=== PATIENT | female | born 1975 | race Two or more races ===

== ENCOUNTER 2020-07-26 13:33 | Outpatient (REF) | payer OTHER, SELFPAY ==
--- NOTE | ~2020-07-26 | MM_ITS ---
EXAMINATION: MM SCREENING DIGITAL BREAST TOMOSYNTHESIS, BILATERAL CLINICAL INFORMATION: Screening. Asymptomatic. The lifetime risk of breast cancer based on the Tyrer-Cuzick Model is 14%. COMPARISON: Mammography: 08/31/2018, 08/17/2017, 08/05/2017; ultrasound left breast 08/17/2017 TECHNIQUE: Digital breast tomosynthesis is performed in both the craniocaudal and mediolateral oblique views along with computer-aided detection (CAD). Synthesized 2D images are generated from the tomosynthesis. FINDINGS: The breasts are heterogeneously dense, which may obscure small masses (ACR BI-RADS breast composition Category c). There is fibronodular parenchymal pattern with scattered bilateral asymmetries and shifting fibroglandular tissues from year to year depending on positioning without significant change. There is no developing density or interval mass or architectural abnormality. Small cyst outer left breast is stable. There is stable nodularity anterior upper outer right breast similar to prior tomography. There are no abnormal calcifications. The axilla and skin contours are unremarkable. MM/MM tomosynthesis screening BI IMPRESSION: No significant changes from prior studies. ASSESSMENT: BI-RADS 2: Benign RECOMMENDATION: Routine annual mammography screening. This patient's information was entered into a reminder system with a target due date for their next mammogram.
== END 2020-07-26 13:34 | disposition home or self-care (01) ==
LOC: HO.MAMMO 13:33
PROVIDERS: PCP Internal Medicine; Visit Provider Internal Medicine
DX: Z12.31 Encounter for screening mammogram for malignant neoplasm of breast (principal)
CPT/HCPCS: 77063; 77067

== ENCOUNTER → 2021-09-02 10:30 | Outpatient (BNVA) | payer OTHER, SELFPAY | PROVIDERS: PCP Internal Medicine; Referring Provider Internal Medicine; Visit Provider Internal Medicine | DX: Q79.60 Ehlers-Danlos syndrome, unspecified (principal); R00.2 Palpitations | CPT/HCPCS: 93005 ==

== ENCOUNTER → 2021-10-02 08:51 | Outpatient (BNVA) | payer OTHER, SELFPAY | PROVIDERS: PCP Internal Medicine; Visit Provider Psychiatry & Neurology Neurology | DX: Z13.89 Encounter for screening for other disorder (principal) ==

== ENCOUNTER → 2021-10-07 08:29 | Outpatient (REF) | payer OTHER, SELFPAY ==
--- NOTE | 2021-10-07 08:33 | CA_ITS ---
Transthoracic Echocardiogram Patient (Last, First, Middle): Beti Ramirez, I Gender: Female Date of : 1975 Age: 46 Procedure Date: 10/07/2021 Procedure Type: Transthoracic Echocardiogram Location: OP Height: 170.18 cm Weight: 71.22 kg BSA: 1.82 m2 Heart Rate: bpm BP: 120 / 60 mmHg [employer] Official: LIBORIO Referring MD: Matheus Alaniz MD Symptoms: Q79.60 - Maren-Danlos syndrome, unspecified Study Quality: Good ECG Rhythm: Sinus Conclusions: - The left ventricular systolic function is normal. The calculated ejection fraction is 63% by biplane method. - No obvious valvular pathology seen on this study. Findings Left Ventricle Normal left ventricular cavity size. There is normal left ventricular wall thickness. The left ventricular systolic function is normal. The calculated ejection fraction is 63% by biplane method. There is no evidence of regional wall motion abnormalities. Diastolic function is normal for age. Right Ventricle Normal right ventricular cavity size and systolic function. Atria Both atria are normal in size. Aortic Valve There is a normal trileaflet aortic valve. There is no aortic valve stenosis. There is no aortic valve regurgitation. Mitral Valve There is no mitral valve stenosis. Minimal leaflet thickening. Trace to mild mitral regurgitation. Pulmonic Valve The pulmonic valve is likely normal. Tricuspid Valve Normal tricuspid valve structure. There is trace tricuspid valve regurgitation. The pulmonary artery systolic pressure is normal. Great Vessels The asc aorta and aortic arch are normal in size. Venous The inferior vena cava is normal in size and collapses greater than 50% with inspiration. Pericardium/Pleural There is no evidence of pericardial effusion. Prior Study Comparison No prior study available for comparison. Recommendations, Care & Conclusions No obvious valvular pathology seen on this study. Measurements 2D Linear Measurements IVSd: 0.70 0.6-0.9/0.6-1.0 cm LVIDd: 4.77 3.9-5.3/4.2-5.9 cm LVIDd Index: 2.62 2.4-3.2/2.2-3.1 cm/m2 LVIDs: 3.12 2.0-3.6 cm LVPWd: 0.62 0.7-1.1 cm LA Diam: 3.00 2.7-3.8/3.0-4.0 cm LAIDs Index: 1.65 1.5-2.3 cm/m2 LV Mass: 121.91 67-162/88-224 g LV Mass Index: 66.99 43-95/49-115 g/m2 LVOT Diam: 1.90 3.0+(-)1.3 cm 2D Systolic Function EF 4C: 59.00 >55% EF 2C: 66.30 >55% EF BiP: 62.70 >55% Mitral Valve MV Pk E: 0.69 MV PK A: 0.67 MV Decel Time: 171.00 E/A: 1.00 E'Lateral: 14.80 E'Medial: 7.72 E/E' Med: 9.00 E/E' Lat: 4.70 PHT: 50.00 MVA PHT: 4.40 Decel [place]: 4.04 Aortic Valve AoV Pk Jay: 1.33 AoV Mn Jay: 0.98 AoV VTI: 0.29 AoV Pk Grad: 7.00 Aov Mn Grad: 4.00 [place] Cont.VTI: 2.26 LVOT LVOT Pk Jay: 1.05 LVOT Mn Jay: 0.81 LVOT VTI: 0.23 LVOT Pk Grad: 4.00 LVOT Mn Grad: 3.00 LVOT Diam: 1.90 LVOT Area: 2.84 Diastolic Function MV Pk E: 0.69 MV Pk A: 0.67 E/A: 1.00 E'Medial: 7.72 E/E' Med: 9.00 E' Laterial: 14.80 E/E' Lat: 4.70 Right Ventricle TAPSE (mm): 22.30 TVS' Jay: 11.90 Tricuspid Valve TR Pk Jay: 1.59 TR Pk Grad: 10.00 RA Press: 3.00 RVSP: 13.00 Great Vessels Aorta Sinus of Valsalva: 3.11 2.0-3.[address] [place]: 2.70 1.7-3.4 cm Ao Asc: 3.00 2.1-3.4 cm Ao Arch: 3.00 Updated in Other Vendor System with Status of Final Matheus Alaniz MD electronically signed on 10/07/2021 11:55:33 AM with status of Final
--- NOTE | 2021-10-07 08:33 | HM_ITS ---
* Total monitoring time 3 days and 1 hour. * Underlying rhythm is sinus. Average rate 81/Min; range 53 to 138/Min. * No atrial fibrillation or flutter or AV blocks or pauses. * Very rare ventricular ectopy; one 3 beat run (could have supraventricular beats) * No patient events. MTDD
== END ==
LOC: HO.CARD 08:29
PROVIDERS: Visit Provider Internal Medicine
DX: Q79.60 Ehlers-Danlos syndrome, unspecified (principal); R00.2 Palpitations
CPT/HCPCS: 93242; 93306

== ENCOUNTER 2021-10-09 10:43 | Outpatient (REF) | payer OTHER, SELFPAY ==
[2021-10-12 14:45] LABS: HPV mRNA E6/E7 rflx Not Detected (Not Detected)
== END 2021-10-09 10:44 | disposition home or self-care (01) ==
LOC: HO.LAB 10:43
PROVIDERS: PCP Internal Medicine; Visit Provider Advanced Practice Midwife
DX: Z01.419 Encounter for gynecological examination (general) (routine) without abnormal findings (principal); Z11.51 Encounter for screening for human papillomavirus (HPV)
CPT/HCPCS: 87624; 88142

== ENCOUNTER 2021-10-14 10:28 | Outpatient (REF) | payer OTHER, SELFPAY | END 2021-10-14 10:29 | disposition home or self-care (01) | LOC: HO.MAMMO 10:28 | PROVIDERS: PCP Internal Medicine; Visit Provider Internal Medicine | DX: Z13.89 Encounter for screening for other disorder (principal) ==

== ENCOUNTER → 2021-11-07 14:34 | Outpatient (BNVA) | payer OTHER, SELFPAY | PROVIDERS: PCP Internal Medicine; Referring Provider Internal Medicine; Visit Provider Nurse Practitioner Family | DX: R07.9 Chest pain, unspecified (principal) ==

== ENCOUNTER 2021-11-08 07:57 | Outpatient (REF) | payer OTHER, SELFPAY ==
--- NOTE | ~2021-11-08 | MR_ITS ---
EXAMINATION: MR CERVICAL SPINE WITHOUT CONTRAST CLINICAL INFORMATION: 46-year-old with self-reported neck pain of 6 months duration and bilateral cervical radicular symptoms. COMPARISON: None. TECHNIQUE: MRI of the cervical spine was obtained using routine sequences without contrast. FINDINGS: ALIGNMENT: Slight lordotic reversal noted centered at C5-C6 with overall lordotic loss noted. No spondylolisthesis or significant retrolisthesis. CRANIOCERVICAL JUNCTION/C1-C2 ARTICULATIONS: Intact and aligned. Mild degenerative changes at the anterior atlantodental joint. VISUALIZED INTRACRANIAL STRUCTURES: Within normal limits. VERTEBRAL BODIES: Normal height. DISC SPACES AND ENDPLATES: Slight disc space height loss at C3-C4 and C4-C5 with moderate disc space height loss at C5-C6 and C6-C7 and lplm-gw-qjvijwrx degrees of anterior marginal spondylosis at C4-C5, C5-C6 and C6-C7. Endplates appear intact. Multilevel disc desiccation seen throughout the cervical spine between C2-C3 and C6-C7 inclusive. BONE MARROW: No significant marrow-replacing process or bone marrow edema. C2-C3: No disc herniation or canal stenosis. No significant DJD or neural foraminal stenosis. C3-C4: Broad-based disc protrusion noted with mild flattening of the ventral dural sac without cord impingement or canal stenosis. Minor facet arthrosis noted with mild uncinate process spurring bilaterally without significant neural foraminal stenosis. C4-C5: Minor posterior disc osteophyte complex without canal stenosis or cord impingement. Mild uncinate process spurring bilaterally and minor facet arthropathy without neural foraminal stenosis. C5-C6: Broad-based disc osteophyte complex noted with flattening of the dural sac asymmetric to the left without cord impingement. No significant spinal canal stenosis. No significant facet arthrosis. There is uncovertebral spurring bilaterally, with nhyp-vb-ucrvvhhb bilateral neural foraminal stenosis. C6-C7: Central disc herniation noted with jags-yj-cpmpgmcx flattening of the ventral dural sac without cord impingement and no significant spinal canal stenosis. There is uncovertebral spurring bilaterally, left more than right without significant facet arthropathy, with mild left-sided neural foraminal stenosis. C7-T1: No disc herniation. Moderate left-sided facet arthrosis noted. No significant canal or neural foraminal stenosis. SPINAL CORD: The cervical and visualized upper thoracic spinal cord is normal in morphology, caliber and signal intensity throughout. No focal lesion, edema or syrinx. EXTRACRANIAL SOFT TISSUES: Grossly unremarkable within the limitations of the study. MR/MR cervical spine wo con IMPRESSION: 1. Lordotic loss with slight reversal of the normal lordotic curvature centered at C5-C6 with multilevel discogenic degenerative changes and spondylosis. 2. Multilevel disc herniations and posterior disc osteophyte complex as described above without cord impingement or significant spinal canal stenosis. 3. Multilevel bilateral uncovertebral arthrosis is noted, with sokr-ef-pbhxohwy bilateral neural foraminal stenosis at C5-C6 and mild left-sided neural foraminal stenosis at C6-C7. Left-sided facet arthropathy at C7-T1 noted without significant neural foraminal stenosis. 4. Some limitations related to motion artifact throughout the study.
[2021-11-08 09:00] LABS: MANUAL DIFF FLAG NO
[2021-11-08 10:13] LABS: Basophils Percent Auto 0.4 % (0-2); Eosinophils Absolute Auto 0.1 X10*3/uL (0.0-0.4); Eosinophils Percent Auto 1.7 % (0-4); Hematocrit 43.7 % (37.0-47.0); Hemoglobin 14.6 g/dl (12.0-16.0); Imm Gran Abs Auto 0.01 X10*3/uL (0.00-0.03); Imm Gran Pct Auto 0.2 % (0.0-0.4); Lymphocytes Percent Auto 38.8 % (20-40); Mean Corpuscular HGB Conc 33.4 g/dl (31.0-35.0); Mean Corpuscular Hemoglobin 31.3 pg (27.0-33.0); Mean Corpuscular Volume 93.6 fL (80.0-98.0); Mean Platelet Volume 10.8 fL (9.4-12.3); Monocytes Absolute Auto 0.5 X10*3/uL (0.1-1.2); Neutrophils Absolute Auto 2.5 x10*3/uL (2.0-8.3); Neutrophils Percent Auto 48.9 % (45-73); Platelet Count 285 X10*3/uL (160-400); Red Blood Count 4.67 X10*6/uL (4.20-5.50); Red Cell Distribution Width 12.9 % (11.0-16.0); White Blood Count 5.2 X10*3/uL (4.8-10.8)
[2021-11-08 10:54] LABS: Alanine Aminotransferase 19 U/L (0-31); Albumin Level 3.9 g/dL (3.5-5.0); Alkaline Phosphatase 68 U/L (39-117); Anion Gap 13 (12-20); Aspartate Amino Transferase 21 U/L (5-31); Bilirubin Total 0.6 mg/dL (0.0-1.0); Blood Urea Nitrogen 11 mg/dL (9-16); Calcium 9.4 mg/dL (8.4-10.2); Carbon Dioxide 25 mmol/L (22-29); Chloride 105 mmol/L (96-108); Cholesterol 197 mg/dL; Estimated Glomerular Filt Rate > 60; Glucose Fasting 82 mg/dL (60-99); HDL Cholesterol 74 mg/dL; LDL Cholesterol Calculated 113 mg/dl; Potassium 4.6 mmol/L (3.3-5.1); Sodium 138 mmol/L (135-145); Total Protein 6.5 g/dL (6.5-8.0); Triglycerides 51 mg/dL
== END 2021-11-08 07:58 | disposition home or self-care (01) ==
LOC: HO.MRI 07:57
PROVIDERS: Internal Medicine; Visit Provider Psychiatry & Neurology Neurology
DX: Z00.00 Encounter for general adult medical examination without abnormal findings (principal); M62.838 Other muscle spasm; M54.2 Cervicalgia; M54.9 Dorsalgia, unspecified; R20.0 Anesthesia of skin; R20.2 Paresthesia of skin; E78.5 Hyperlipidemia, unspecified; K57.92 Diverticulitis of intestine, part unspecified, without perforation or abscess without bleeding
CPT/HCPCS: 36415; 72141; 80053; 80061; 85025

== ENCOUNTER 2021-12-18 10:13 | Outpatient (REF) | payer OTHER, SELFPAY ==
--- NOTE | 2021-12-18 10:22 | EMG_ITS ---
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 PHYSICAL EXAMINATION: On examination, she is oriented with normal intellectual functions. Cranial nerves are normal. She has 4 years of loose skin. Reflexes symmetrical. IMPRESSION: Rule out cervical radiculopathy. Nerve conduction EMG study: Normal electrodiagnostic study of both upper extremities with no evidence of carpal tunnel syndrome, nerve entrapment, or generalized neuropathy. Normal EMG of the right C5-T1 innervated muscles. MD RONAL Roach/BELEN / [id number]
== END 2021-12-18 10:14 | disposition home or self-care (01) ==
LOC: HO.NEURO 10:13
PROVIDERS: PCP Internal Medicine; Visit Provider Psychiatry & Neurology Neurology
DX: R20.0 Anesthesia of skin (principal); R20.2 Paresthesia of skin; M62.838 Other muscle spasm; M54.2 Cervicalgia; M54.9 Dorsalgia, unspecified; Q79.60 Ehlers-Danlos syndrome, unspecified
CPT/HCPCS: 95886; 95913

== ENCOUNTER 2022-04-15 09:39 | Outpatient (REF) | payer OTHER, SELFPAY ==
--- NOTE | ~2022-04-15 | MR_ITS ---
EXAMINATION: MR LUMBAR SPINE WITHOUT CONTRAST CLINICAL INFORMATION: 46-year-old with self-reported mid to low back pain and bilateral leg pain and numbness. COMPARISON: None. TECHNIQUE: MRI of the lumbar spine was obtained using routine sequences without contrast. Images were degraded by motion artifact. FINDINGS: CORONAL ALIGNMENT: Trace lower lumbar levocurvature. SAGITTAL ALIGNMENT: Normal. LUMBOSACRAL JUNCTION: Normal. 5 eft-zyt-vvxsbwh lumbar-type vertebral bodies. VERTEBRAL BODIES: Normal height. DISC SPACES AND ENDPLATES: Mild disc space height loss and disc desiccation at L5-S1. Mild disc space height loss and disc desiccation at L3-L4, with minimal disc space height loss and disc desiccation at L4-L5. Endplates appear intact. No significant spondylosis. SPINAL CANAL: No abnormal developmental findings. BONE MARROW: No significant marrow-replacing process or bone marrow edema. CONUS MEDULLARIS: Terminates at T12-L1. Morphology and signal is normal. INTRADURAL NERVE ROOTS: Within normal limits. L5-S1: Shallow broad-based central disc protrusion with a tiny central annular fissure without thecal sac or neural impingement. No significant degenerative joint disease, canal or neural foraminal stenosis. L4-L5: Broad-based central to left paramedian shallow disc protrusion with transverse annular fissuring and minimal indentation of the ventral thecal sac without neural impingement. Mild left and moderate right-sided facet arthrosis noted with no significant canal or neural foraminal stenosis. L3-L4: Mild diffuse disc bulging with a small central annular fissure and slight flattening of the ventral dural sac. Mild left and moderate right-sided facet arthrosis noted without significant canal or neural foraminal stenosis. The remaining lumbar discs demonstrate normal contours with no significant facet arthrosis, canal or neural foraminal stenosis. PARASPINAL/RETROPERITONEAL: The visualized paravertebral soft tissues are within normal limits. Sigmoid diverticulosis is suspected. MR/MR lumbar spine wo con IMPRESSION: 1. Mild multilevel discogenic degenerative changes between L3-L4 and L5-S1 inclusive, with shallow broad-based central disc protrusions at L4-L5 and L5-S1 and mild disc bulging at L3-L4 with central annular fissuring at both levels without neural impingement or significant spinal canal stenosis. 2. Lyrr-jt-iakdvtko degrees of facet arthropathy at L3-L4, L4-L5 and L5-S1 without significant neural foraminal stenosis. 3. Probable sigmoid diverticulosis.
== END 2022-04-15 09:40 | disposition home or self-care (01) ==
LOC: HO.MRI 09:39
PROVIDERS: Visit Provider Psychiatry & Neurology Neurology
DX: M54.9 Dorsalgia, unspecified (principal); M62.838 Other muscle spasm; Q79.63 Vascular Ehlers-Danlos syndrome; R20.0 Anesthesia of skin; R20.2 Paresthesia of skin; R29.898 Other symptoms and signs involving the musculoskeletal system
CPT/HCPCS: 72148

== ENCOUNTER → 2022-10-01 08:30 | Outpatient (BNVA) | payer OTHER, SELFPAY | PROVIDERS: PCP Internal Medicine; Visit Provider Psychiatry & Neurology Neurology | DX: R29.898 Other symptoms and signs involving the musculoskeletal system (principal); Q79.63 Vascular Ehlers-Danlos syndrome; M54.9 Dorsalgia, unspecified; R20.0 Anesthesia of skin; R20.2 Paresthesia of skin; M62.838 Other muscle spasm; M54.2 Cervicalgia ==

== ENCOUNTER → 2022-11-17 08:33 | Outpatient (BNVA) | payer OTHER, SELFPAY | PROVIDERS: PCP Internal Medicine; Referring Provider Internal Medicine; Visit Provider Internal Medicine | DX: R00.2 Palpitations (principal); Q79.60 Ehlers-Danlos syndrome, unspecified | CPT/HCPCS: 93005 ==

== ENCOUNTER 2023-01-05 09:29 | Outpatient (REF) | payer OTHER, SELFPAY ==
--- NOTE | ~2023-01-05 | MM_ITS ---
EXAMINATION: MM SCREENING DIGITAL BREAST TOMOSYNTHESIS, BILATERAL CLINICAL INFORMATION: Screening. Asymptomatic. The lifetime risk of breast cancer based on the Tyrer-Cuzick Model is 13.7%. COMPARISON: Mammography: This study is compared with prior exams dating back to 2018. TECHNIQUE: Digital breast tomosynthesis is performed in both the craniocaudal and mediolateral oblique views along with computer-aided detection (CAD). Synthesized 2D images are generated from the tomosynthesis. FINDINGS: There are scattered areas of fibroglandular density (ACR BI-RADS breast composition Category b). There are no significant masses, abnormal calcifications, or other abnormalities. MM/MM tomosynthesis screening BI IMPRESSION: No mammographic evidence of malignancy. ASSESSMENT: BI-RADS BI-RADS 1 - Negative RECOMMENDATION: Routine annual mammography screening. 1 year F/U This examination should not preclude the clinical evaluation of a suspicious palpable abnormality. This patient's information was entered into a reminder system with a target due date for their next mammogram.
== END 2023-01-05 09:30 | disposition home or self-care (01) ==
LOC: HO.MAMMO 09:29
PROVIDERS: PCP Internal Medicine; Visit Provider Internal Medicine
DX: Z12.31 Encounter for screening mammogram for malignant neoplasm of breast (principal)
CPT/HCPCS: 77063; 77067

== ENCOUNTER → 2023-01-05 09:45 | Outpatient (BNV) | payer OTHER, SELFPAY | PROVIDERS: PCP Internal Medicine; Visit Provider Radiology Diagnostic Radiology | DX: Z12.31 Encounter for screening mammogram for malignant neoplasm of breast (principal) | CPT/HCPCS: 77063; 77067 ==

== ENCOUNTER 2023-02-09 10:49 | Outpatient (AMB) | payer OTHER, SELFPAY ==
--- NOTE | 2023-02-09 10:51 | A.OFFPC_ITS ---
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: No Accompanied by: Self / Same As Patient Allergies No Known Allergies Allergy (Verified 02/09/23 10:57) Medication List - Last Reconciled 02/09/23 by Blanca Chauhan MD albuterol sulfate 90 mcg/actuation 1 puff PO Q4H PRN 30 days magnesium glycinate 300 mg (3 x 100 mg magnesium) PO .qhs methimazole 2.5 mg PO DAILY Tobacco use date assessed: 08/12/22 Dental Screening Dental Screen Date: 02/09/23 Did you have a dental visit in the last 12 months?: Yes Did you have a dental problem in the last 6 months where you did not have access to dental care?: No Was dental information given to patient?: Patient has dentist HPI HPI Comments History of Present Illness Details This is a 47-year-old female with hyperthyroidism, Maren-Danlos, mild asthma and migraines that comes today for follow-up on her conditions. Hyperthyroidism is follow by Endocrinology. Maren-Danlos is follow by Rheumatology. She use rescue inhaler less than once a month. Migraines have improved on its own and this is follow by Neurology. She takes ulqs-fuk-bhkdkng naproxen occasionally for body aches and migraines. [facility] Medical History (Updated 02/09/23 @ 11:05 by Blanca Chauhan MD) Chest pain Diverticulitis Dystonia Family history of hypertension Hospital discharge follow-up Hyperthyroidism Migraines Mild asthma Physical exam Skin lesion Transient global amnesia Vertigo Vertigo Surgical History No pertinent past surgical history Family History Father Diabetes Hypertension H/O heart surgery Mother Hypertension Maren-Danlos syndrome Maternal Grandfather No problems noted. Maternal Aunt Cancer Sister Maren-Danlos syndrome Heart disease Social History Housing: Apartment Alcohol intake: never Patient Tobacco Use Status: Never used Tobacco e-Cigarette/Vaping Use: Never Used Second Hand Smoke Exposure: No service: No Current occupational status: employed Current occupational exposures/hazards: No Cognitive needs: No Hearing needs: No Vision needs: Yes Questionnaire Thrive Questionnaire Date Thrive assessed: 08/12/22 HOSEA-7 AMB Questionnaire HOSEA-7 Date HOSEA - 7 assessed: 08/12/22 Source: Developed by Drs. Jaime Dang, Anamaria Tamayo, Omari Garg and colleagues, with an educational christiano from [employer]. Review of Systems Const All systems reviewed & are unremarkable except as noted in HPI and below Eyes Reports no additional complaints, Denies change in vision and Denies other visual disturbances Card Denies chest pain at rest, Denies chest pain with activity, Denies edema, Denies irregular heart rhythm, Denies claudication, Denies dyspnea, Denies dyspnea on exertion, Denies orthopnea, Denies paroxysmal nocturnal dyspnea and Denies slow heart rate Resp Denies cough, Denies dyspnea and Denies dyspnea on exertion GI Denies abdominal pain, Denies change in bowel habits, Denies excessive flatus, Denies nausea and Denies vomiting Denies urinary incontinence, Denies urinary hesitancy and Denies urinary urgency Musc Denies abnormal gait, Denies atrophy, Denies deformity and Denies limited range of motion Skin/Breast Denies bleeding lesions, Denies changing lesions and Denies rash Neuro Denies abnormal gait and Denies lack of coordination Physical exam (Primary Care) Vital Signs: Last Vital Signs BP 132/78 02/09/23 10:52 BMI result Body Mass Index 27.2 Tobacco/Smoking Status: Tobacco use Status Tobacco use date assessed 08/12/22 02/09/23 10:56 Patient Tobacco Use Status Never used Tobacco 02/09/23 10:56 Tobacco use type 12/10/21 17:59 e-Cigarette/Vaping Use Never Used 02/09/23 10:56 Thrive Assessment: Date of Thrive Assessment Date Thrive assessed 08/12/22 02/09/23 10:56 Eyes General: appearance normal, both eyes and all related structures Eyelids: Yes eyelids normal Conjunctivae: conjunctivae normal Neck Neck: Yes normal visual inspection and Yes supple Resp Effort & Inspection: normal respiratory effort Auscultation: clear to auscultation bilaterally Cardio Jugular venous distension: no JVD Rate: regular rate Rhythm: regular rhythm Heart sounds: S1 normal heart sound present and S2 normal heart sound present Extrem General: Yes full ROM Assessment and Plan Assessment & Plan (1) Hyperthyroidism: Code(s): E05.90 - Thyrotoxicosis, unspecified without thyrotoxic crisis or storm Plan: Continue methimazole. (2) Mild asthma: Code(s): J45.909 - Unspecified asthma, uncomplicated Plan: Use rescue inhaler as needed (3) Migraines: Code(s): G43.909 - Migraine, unspecified, not intractable, without status migrainosus Qualifiers: Migraine type: menstrual Status migrainosus presence: without status migrainosus Intractability: not intractable Qualified Code(s): G43.829 - Menstrual migraine, not intractable, without status migrainosus Plan: Continue NSAIDs as needed. Follow-up with Neurology. (4) Maren-Danlos syndrome: Code(s): Q79.60 - Maren-Danlos syndrome, unspecified Plan: Follow-up with rheumatology Orders: Orders FL upper GI series Today R10.13 - Epigastric pain Medications: New arm brace (Wrist Support One Size) As directed 1 ea 0RF M79.641 - Pain in right hand Ventolin HFA 90 mcg/actuation (albuterol sulfate) 2 puffs inhalation Q6H 30 days PRN 8 grams 2RF shortness of breath or wheezing NS J45.909 - Unspecified asthma, uncomplicated Discontinued albuterol sulfate 90 mcg/actuation Discontinued Reason: Patient Completed Course 1 puff PO Q4H 30 days PRN 6.7 grams 0RF bronchospasm J45.909 - Unspecified asthma, uncomplicated Coding Level of Care Code Est Pt Level 4 (49431) Diagnoses Hyperthyroidism E05.90 Mild asthma J45.909 Migraines G43.829 Migraine type: menstrual Status migrainosus presence: without status migrainosus Intractability: not intractable Maren-Danlos syndrome Q79.60 Time Spent (min) 23
[2023-02-09 10:52] VITALS: BP 132/78; BMI 27.2
== END 2023-02-09 11:12 | disposition home or self-care (01) ==
PROVIDERS: Visit Provider Internal Medicine
DX: E05.90 Thyrotoxicosis, unspecified without thyrotoxic crisis or storm (principal); J45.909 Unspecified asthma, uncomplicated; G43.829 Menstrual migraine, not intractable, without status migrainosus; Q79.60 Ehlers-Danlos syndrome, unspecified
CPT/HCPCS: 99214

== ENCOUNTER 2023-03-24 14:03 | Outpatient (AMB) | payer OTHER, SELFPAY ==
--- NOTE | 2023-03-24 14:18 | AM.OFFVISNUR ---
Intake Intake Visit Reasons: Flu Shot Allergies No Known Allergies Allergy (Verified 02/09/23 10:57) Office Procedures Flu Questionnaire Does the patient have a severe egg allergy?: No Does the patient have severe life threatening allergies?: No Does the patient have a fever or illness today?: No Has the patient ever had Guillain-[place] Syndrome?: No Has the patient ever had any past reaction to a flu shot?: No Immunizations flu vacc [id number] 6mos up(PF) 60 mcg(15 mcgx4)/0.5 mL IM syringe Performing Provider: Blanca Chauhan MD Performing Location: [facility] Administered by: Elizabeth Rudd RN on 03/24/23 14:18 Dose Route Admin Location Dispensed Lot Number Expiration Date NDC Financial Management Analyst 0.5 mL IM Left Deltoid 0.5 mL [id number] 12/13/23 58907-099-46 [employer] VIS Given Date VIS Provided VIS Publication Date 03/24/23 Single Vaccine 21 Eligibility Eligibility Date Funding Source Not [facility] Eligible 03/24/23 Private Coding Assessment & Plan Assessment & Plan Orders: Orders Influenza [id number] Immunization Today Z23 - Encounter for immunization
== END 2023-03-24 15:41 | disposition home or self-care (01) ==
PROVIDERS: PCP Internal Medicine; Visit Provider Internal Medicine
DX: Z23 Encounter for immunization (principal)
CPT/HCPCS: 90471; 90686

== ENCOUNTER 2023-04-02 10:20 | Outpatient (AMB) | payer OTHER, SELFPAY ==
--- NOTE | 2023-04-02 10:21 | A.OFFVIS_ITS ---
Intake Vital Signs 04/02/23 10:22 Height 5 ft 7 in Weight 177 lb 4 oz BMI 27.8 BP 118/72 Blood Pressure Location Lt brachial Position Sitting Respiration 16 Pulse 85 Pulse Source Pulse Oximeter Pulse Oximetry (%) 99 Oxygen Delivery Method Room Air Intake Visit Reasons: 6m follow up Dystonia-confirmed Intake Note: Pt presents o the office for a 6 month follow up for dystonia. She reports dizzy spells when rising from bed or a chair. She c/o more frequesnt migraines headaches and they are more severe than usual. She reports more broken veins on her legs, arms and fingers that causee bruising and pooling of blood. This has become more severe. Lately, she has been feeling as if there were fish wire in the gums that are being pulled up towards both her eyes causing sharp pain . This has been happening for 2 months. Lastly, she c/o dry eyes. 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 Now she feels like she has spasm in roxana face - she says it is not seen but feels like her face is pulled up. gabapentin helped but she stopped because of intolerance . she reports back pain and occasional shooting pain leg weakness and leg spasms . Her C spine MRI showed multilevel deg changes. No cord compression Ls pine MRI showed mild changes she uses OTC medications for pain- does not remember the name. Migraines are worse - 1/month can last 2 days EMG UE normal she reports dizziness when she stands up. [facility] Medical History Vertigo Transient global amnesia Vertigo Chest pain Dystonia Physical exam Hyperthyroidism Diverticulitis Hospital discharge follow-up Skin lesion Mild asthma Family history of hypertension Migraines Surgical History No pertinent past surgical history Family History Father Diabetes Hypertension H/O heart surgery Mother Hypertension Maren-Danlos syndrome Maternal Grandfather No problems noted. Maternal Aunt Cancer Sister Maren-Danlos syndrome Heart disease Social History Housing: Apartment Alcohol intake: never Patient Tobacco Use Status: Never used Tobacco e-Cigarette/Vaping Use: Never Used Second Hand Smoke Exposure: No service: No Current occupational status: employed Current occupational exposures/hazards: No Cognitive needs: No Hearing needs: No Vision needs: Yes Physical Exam Vital Signs: Last Vital Signs Pulse 85 04/02/23 10:22 Resp 16 04/02/23 10:22 BP 118/72 04/02/23 10:22 Pulse Ox 99 04/02/23 10:22 Oxygen Delivery Method Room Air 04/02/23 10:22 BMI result Body Mass Index 27.8 Const General: cooperative, healthy appearing, comfortable and no acute distress Nutritional Appearance: average body habitus Orientation/consciousness: patient oriented x3 HEENT Head: Yes normal to inspection and Yes normocephalic Eyes Pupils: Equal, round and reactive pupils present Neck Other: spasm in para spinal neck muscles , trapezius Neck: Yes normal visual inspection Neuro General: patient oriented x3, gait normal, tone normal, moves all extremities, no focal motor deficits and CN's II-XI intact bilaterally Cranial nerves: Yes CN's II-XII intact bilaterally, Yes Facial sensation intact/muscles of mastication intact, Yes Equal, round and reactive pupils present, Yes Bilaterally intact EOM present and Yes Normal facial strength p resent Cognition (Neuro): normal cognition Gait exam (Neuro): Normal gait present Deep tendon reflexes (DTR's): Right triceps reflex intensity grade: 2+, Left triceps reflex intensity grade: 2+, Rt Biceps (C5, C6): 2+, Left biceps reflex intensity grade: 2+, Right brachioradialis reflex intensity grade: 2+, Left brachioradialis reflex intensity grade: 2+, Right patellar reflex intensity grade: 3+, Left patellar reflex intensity grade: 3+, Right ankle reflex intensity grade: 3+ and Left ankle reflex intensity grade: 3+ Plantar Reflex Responses: upgoing (positive Babinski): right and left Psych Affect: Anxious affect present Assessment & Plan Assessment & Plan (1) Back pain: Code(s): M54.9 - Dorsalgia, unspecified (2) Leg weakness, bilateral: Code(s): R29.898 - Other symptoms and signs involving the musculoskeletal system (3) Neck pain: Code(s): M54.2 - Cervicalgia (4) Muscle spasm: Code(s): M62.838 - Other muscle spasm Plan I will trial her on amitriptyline 10mg qhs and imitrex 50mg as needed for migraines, Magnesium Glycinate 100mg qhs for muscle spasm , migraines and stiffness. Medications: New amitriptyline 10 mg PO BEDTIME 30 tabs 6RF sumatriptan succinate (Imitrex) take 1 tab at onset of headache; if no relief may repeat 1 tab after at least 2 hrs; max = 4 tabs/24 hr PO 14 tabs 6RF Changed From magnesium glycinate 300 mg (3 x 100 mg magnesium) PO .qhs 90 caps 6RF To magnesium glycinate 100 mg PO .qhs 90 caps 6RF Coding Level of Care Code Est Pt Level 4 (21540) Diagnoses Back pain M54.9 Leg weakness, bilateral R29.898 Neck pain M54.2 Muscle spasm M62.838
[2023-04-02 10:22] VITALS: BP 118/72; PULSE 85; RESP 16; O2SAT 99; BMI 27.8
== END 2023-04-02 10:50 | disposition home or self-care (01) ==
PROVIDERS: Visit Provider Psychiatry & Neurology Neurology
DX: M54.9 Dorsalgia, unspecified (principal); R29.898 Other symptoms and signs involving the musculoskeletal system; M54.2 Cervicalgia; M62.838 Other muscle spasm
CPT/HCPCS: 99214

== ENCOUNTER → 2023-04-02 10:20 | Outpatient (BNVA) | payer OTHER, SELFPAY | PROVIDERS: Visit Provider Psychiatry & Neurology Neurology | DX: R29.898 Other symptoms and signs involving the musculoskeletal system (principal); Q79.63 Vascular Ehlers-Danlos syndrome; M54.9 Dorsalgia, unspecified; R20.0 Anesthesia of skin; R20.2 Paresthesia of skin; M62.838 Other muscle spasm; M54.2 Cervicalgia ==

== ENCOUNTER 2023-04-21 09:22 | Outpatient (REF) | payer OTHER, SELFPAY ==
--- NOTE | ~2023-04-21 | FL_ITS ---
EXAMINATION: XR FLUOROSCOPY UPPER GI WITH AIR CLINICAL INFORMATION: Epigastric pain. Reflux COMPARISON: None TECHNIQUE: Fluoroscopic air contrast upper GI examination was performed utilizing standard techniques with thin and thick barium and effervescent granules. Numerous spot images were obtained. FINDINGS: Lateral cine images of the oropharynx and hypopharynx demonstrate normal swallow mechanism with normal epiglottic inversion and soft palate elevation. No tracheal penetration, glottic or subglottic aspiration identified. No nasopharyngeal reflux present. Hypopharyngeal structures appear normal without evidence of mass or diverticulum. There was no significant cricopharyngeal achalasia. Dual and single contrast images of the esophagus demonstrate normal caliber, contour, and mucosal pattern. No evidence of stricture, mass, or ulcerations identified. Primary esophageal peristalsis was normal. There are some mild nonpropulsive tertiary contractions noted in the distal esophagus. A small type I hiatal hernia is present. Gastroesophageal reflux is seen up to the level of the thoracic inlet. Dual contrast and single contrast images of the stomach demonstrated normal contour and mucosal pattern without evidence of mass, ulceration, or other abnormality. Contrast freely passed into the gastric antrum and duodenal bulb without delay. Single and air-contrast images of the duodenal bulb demonstrate no abnormality. The duodenal sweep has a normal appearance, course, and mucosal fold appearance. The imaged proximal jejunum has a normal fold pattern and caliber. FLUOROSCOPY TIME: 2 minutes 44 seconds Number of Spot Images: 6 Number of Cine: 8 DOSE AREA PRODUCT: [id number] uGy-m2 (microgray-meter squared) FL/FL upper GI series IMPRESSION: 1. Small type hiatal hernia. 2. Significant gastroesophageal reflux. 3. Mild esophageal dysmotility. This procedure was performed by Edgar Lunsford PA-C, and supervised by Dr. Anderson
== END 2023-04-21 09:23 | disposition home or self-care (01) ==
LOC: HO.XRAY 09:22
PROVIDERS: PCP Internal Medicine; Visit Provider Internal Medicine
DX: R10.13 Epigastric pain (principal)
CPT/HCPCS: 74240

== ENCOUNTER → 2023-04-21 09:23 | Outpatient (BNV) | payer OTHER, SELFPAY | PROVIDERS: PCP Internal Medicine; Visit Provider Radiology Diagnostic Radiology | DX: R10.13 Epigastric pain (principal) | CPT/HCPCS: 74246 ==

== ENCOUNTER 2023-06-01 10:37 | Outpatient (AMB) | payer OTHER, SELFPAY ==
--- NOTE | 2023-06-01 10:40 | A.OFFVIS_ITS ---
Intake Vital Signs 06/01/23 10:42 Height 5 ft 7 in Weight 179 lb 6 oz BMI 28.1 BP 116/68 Blood Pressure Location Lt brachial Position Sitting Respiration 16 Pulse 68 Pulse Source Palpation Pulse Oximetry (%) 98 Oxygen Delivery Method Room Air Intake Visit Reasons: 2 mnts f/u for dystonia with shane per MD-Confirmed Intake Note: Pt presents for a 2 month follow up for dystonia. 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 Pt reports her facial and gum pulling sensation is much less with magnesium and amitriptyline. Usually having period worsening the facial spasm. She sleeps better for 7 hrs with amitriptyline 10 mg and mganesium. She had two migraine days last month, and sumatriptan helped to relieve the headache. Pt tried gabapentin in the past, it helped but she stopped because of intolerance. [facility] Medical History Vertigo Transient global amnesia Vertigo Chest pain Dystonia Physical exam Hyperthyroidism Diverticulitis Hospital discharge follow-up Skin lesion Mild asthma Family history of hypertension Migraines Surgical History No pertinent past surgical history Family History Father Diabetes Hypertension H/O heart surgery Mother Hypertension Maren-Danlos syndrome Maternal Grandfather No problems noted. Maternal Aunt Cancer Sister Maren-Danlos syndrome Heart disease Social History Housing: Apartment Alcohol intake: never Patient Tobacco Use Status: Never used Tobacco e-Cigarette/Vaping Use: Never Used Second Hand Smoke Exposure: No service: No Current occupational status: employed Current occupational exposures/hazards: No Cognitive needs: No Hearing needs: No Vision needs: Yes Review of Systems Const All systems reviewed & are unremarkable except as noted in HPI and below Physical Exam Vital Signs: Last Vital Signs Pulse 68 06/01/23 10:42 Resp 16 06/01/23 10:42 BP 116/68 06/01/23 10:42 Pulse Ox 98 06/01/23 10:42 Oxygen Delivery Method Room Air 06/01/23 10:42 BMI result Body Mass Index 28.1 Const General: cooperative, healthy appearing, comfortable and no acute distress Nutritional Appearance: average body habitus Orientation/consciousness: patient oriented x3 HEENT Head: Yes normal to inspection and Yes normocephalic Eyes Pupils: Equal, round and reactive pupils present Neck Other: spasm in para spinal neck muscles , trapezius Neck: Yes normal visual inspection Neuro General: patient oriented x3, gait normal, tone normal, moves all extremities, no focal motor deficits and CN's II-XI intact bilaterally Cranial nerves: Yes CN's II-XII intact bilaterally, Yes Facial sensation intact/muscles of mastication intact, Yes Equal, round and reactive pupils present, Yes Bilaterally intact EOM present and Yes Normal facial strength pr esent Cognition (Neuro): normal cognition Gait exam (Neuro): Normal gait present Deep tendon reflexes (DTR's): Right triceps reflex intensity grade: 2+, Left triceps reflex intensity grade: 2+, Rt Biceps (C5, C6): 2+, Left biceps reflex intensity grade: 2+, Right brachioradialis reflex intensity grade: 2+, Left brachioradialis reflex intensity grade: 2+, Right patellar reflex intensity grade: 3+, Left patellar reflex intensity grade: 3+, Right ankle reflex intensity grade: 3+ and Left ankle reflex intensity grade: 3+ Plantar Reflex Responses: upgoing (positive Babinski): right and left Psych Affect: Anxious affect present Assessment & Plan Assessment & Plan (1) Muscle spasm: Comment: Facial muscle spasm. Code(s): M62.838 - Other muscle spasm (2) Migraines: Code(s): G43.909 - Migraine, unspecified, not intractable, without status migrainosus Qualifiers: Migraine type: menstrual Status migrainosus presence: without status migrainosus Intractability: not intractable Qualified Code(s): G43.829 - Menstrual migraine, not intractable, without status migrainosus Plan Advised patient to continue to bryon amitriptyline 10mg qhs and magnesium qHS as patient experiences good clinical effects. May increase manesium glycinate up to 400 mg qHS. Use imitrex 50mg as needed for acute migraine treatment. Advised patient to track migraine frequency and intensity. Coding Level of Care Code Est Pt Level 4 (68569) Diagnoses Muscle spasm M62.838 Menstrual migraine without status migrainosus, not intractable G43.829 Migraine type: menstrual Status migrainosus presence: without status migrainosus Intractability: not intractable
[2023-06-01 10:42] VITALS: BP 116/68; PULSE 68; RESP 16; O2SAT 98; BMI 28.1
== END 2023-06-01 11:04 | disposition home or self-care (01) ==
PROVIDERS: PCP Internal Medicine; Visit Provider Nurse Practitioner Family
DX: M62.838 Other muscle spasm (principal); G43.829 Menstrual migraine, not intractable, without status migrainosus
CPT/HCPCS: 99214

== ENCOUNTER → 2023-06-01 10:37 | Outpatient (BNVA) | payer OTHER, SELFPAY | PROVIDERS: PCP Internal Medicine; Visit Provider Nurse Practitioner Family ==

== ENCOUNTER 2023-07-03 13:37 | Outpatient (AMB) | payer OTHER, SELFPAY ==
[2023-07-03 13:40] VITALS: BP 124/66; BMI 26.9
--- NOTE | 2023-07-03 13:40 | A.OFFVIS_ITS ---
Intake Vital Signs 07/03/23 13:40 Height 5 ft 7 in Weight 171 lb 15.369 oz BMI 26.9 BP 124/66 Blood Pressure Location Lt brachial Position Sitting Intake Visit Reasons: Gastroesophageal reflux disease (GERD) Intake Note: Patient presents to in office visit today as a new patient for GERD. CC: Per patient she feels like when she eats or drinks it stays in her esophagus. She also c/o pain from her chest, spitting yellowish when she brushes her tongue. She also reports occasional diarrhea. 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 Allergies No Known Allergies Allergy (Verified 07/03/23 13:47) HPI Gastroesophageal reflux disease (GERD) HPI Details 48-YEAR-OLD female here for initial eval uation of GERD. She is referred by Blanca No of [facility] [place] [facility]. PMX Asthma Hypothyroid Maren-Danlos syndrome type 4 Vertigo History of transient global amnesia Palpitations Dystonia Migraines History of diverticulitis Esophageal dysmotility Depression/anxiety * SURGICAL HISTORY Patient denies * ALLERGIES: NKDA * [place] LABS: No current labs since 2021 BARIUM SWALLOW 04/21/23 FINDINGS: Lateral cine images of the oropharynx and hypopharynx demonstrate normal swallow mechanism with normal epiglottic inversion and soft palate elevation. No tracheal penetration, glottic or subglottic aspiration identified. No nasopharyngeal reflux present. Hypopharyngeal structures appear normal without evidence of mass or diverticulum. There was no significant cricopharyngeal achalasia. Dual and single contrast images of the esophagus demonstrate normal caliber, contour, and mucosal pattern. No evidence of stricture, mass, or ulcerations identified. Primary esophageal peristalsis was normal. There are some mild nonpropulsive tertiary contractions noted in the distal esophagus. A small type I hiatal hernia is present. Gastroesophageal reflux is seen up to the level of the thoracic inlet. Dual contrast and single contrast images of the stomach demonstrated normal contour and mucosal pattern without evidence of mass, ulceration, or other abnormality. Contrast freely passed into the gastric antrum and duodenal bulb without delay. Single and air-contrast images of the duodenal bulb demonstrate no abnormality. The duodenal sweep has a normal appearance, course, and mucosal fold appearance. The imaged proximal jejunum has a normal fold pattern and caliber. FLUOROSCOPY TIME: 2 minutes 44 seconds Number of Spot Images: 6 Number of Cine: 8 DOSE AREA PRODUCT: 1598 uGy-m2 (microgray-meter squared) FL/FL upper GI series IMPRESSION: 1. Small type hiatal hernia. 2. Significant gastroesophageal reflux. 3. Mild esophageal dysmotility. This procedure was performed by Edgar Lunsford PA-C, and supervised by Dr. Anderson No current labs since 2021 Gastrointestinal symptoms. Symptoms of esophagitis, gastroesophageal reflux, stomach upset, and irritable bowel syndrome are common and are treated in the same manner as in patients without EDS, but with attention in patients who undergo endoscopy to the fragility of tissues. (See? Medical management of gastroesophageal reflux disease in adults https://www.[employer]/contents/medical-management -jc-kwmuchlfuxgsfjpq-fgutxj-fmadqcc-kh-xrbehm?search=maren%20danlos%20syndrome% 20adult&ygmohJvq=80169&source=see_link ?and? Approach to the adult with dyspepsia https://www.[employer]/contents/orqkryie-lg-gjo-hoehu-fsnb-mnedpyjru?search=maren%20danlos%20s yndrome%20adult&ynacgAwy=11990&source=see_link ?and? Treatment of irritable bowel syndrome in adults https://www.[employer].com/contents/kdgzexcmp-ha-byupjqqzt-qmuyo-bfwlbped-gv-adult s?search=maren%20danlos%20syndrome%20adult&jvkniAwu=25252&source=see_link .) TODAY'S VISIT [place] # she declines She is here today with her who is supportive. She was having chest pain, and she was send to cardiology and was cleared from this standpoint. Then she was referred here for possible GERD and they did a study and found something weird. The symptoms actually started over 2 years ago. She is since changed her diet as she used to suffer from constipation but she is eating more fresh fruits which has helped this and she now can move her bowels every day. She has a sister who suffers from diverticulitis but she has not been afflicted with this. We reviewed the barium swallow which does show quite a lot of reflux so I think this is the most likely cause of her chest pain. She does NOT have dysphagia of solid foods but when she drinks water she has a form of dysphagia where it feels like food and water is splashing up and down in the midsternal area. This could be esophageal spasm, although it was noted that there was some degree of lack of propulsion at the end of the esophagus on the barium swallow. There is also the possibility of a stricture since she has had somewhat asymptomatic GERD for possibly 2 years or more. First going to start her on famotidine twice a day because this comes in tablet form in case she needs to grind it to facilitate her swallowing. I want to give her some relief and hopefully this will help with the swallowing until we can get an upper endoscopy to fully explore what is going on. She is also on magnesium for her Maren-Danlos syndrome but she was having trouble swallowing the big tablet and I did inform her that she could grind it up and put it with some putting. There is no family history known of esophageal cancer or gallbladder disease. Will start BID famotidine, order EGD and can consider cancelling if sx improve r/t EDS. ROV 4 weeks. [facility] Medical History (Updated 07/03/23 @ 14:13 by YVON Cornelius) Well woman exam with routine gynecological exam Hospital discharge follow-up Vertigo Transient global amnesia Vertigo Chest pain Dystonia Physical exam Hyperthyroidism Diverticulitis Skin lesion Mild asthma Family history of hypertension Migraines Surgical History No pertinent past surgical history Family History Father Diabetes Hypertension H/O heart surgery Mother Hypertension Maren-Danlos syndrome Maternal Grandfather Cancer Maternal Aunt Cancer Breast cancer Sister Maren-Danlos syndrome Heart disease Paternal Uncle FH: prostate cancer Social History Housing: Apartment Alcohol intake: never Patient Tobacco Use Status: Never used Tobacco e-Cigarette/Vaping Use: Never Used Second Hand Smoke Exposure: No service: No Current occupational status: employed Current occupational exposures/hazards: No Cognitive needs: No Hearing needs: No Vision needs: Yes Review of Systems Const Denies fatigue, Denies fever(s), Denies night sweats, Denies poor appetite and Denies weight loss Eyes Details: glasses Reports requires corrective lenses ENT Reports Normal hearing present, Denies dental pain, Denies dysphagia, Denies hearing loss, Denies mouth pain, Reports odynophagia, Denies throat swelling, Denies tongue swelling and Reports other (Dentition adequate) Card Reports chest pain Resp Reports no additional complaints GI Denies abdominal pain, Denies melena, Denies bloating, Denies hematochezia, Reports constipation, Denies GI cramping, Denies dysphagia, Denies excessive flatus, Denies early satiety, Reports heartburn, Denies diarrhea, Denies nausea, Reports odynophagia, Denies vomiting and Denies hematemesis Musc Reports back pain, Reports myalgias and Reports muscle cramps Skin/Breast Denies pruritus, Denies lesions, Denies rash and Denies jaundice Neuro Reports Normal hearing present and Denies Abnormal speech present Endo Denies fatigue Aller/Immun Denies throat swelling and Denies tongue swelling Physical Exam Vital Signs: Last Vital Signs BP 124/66 07/03/23 13:40 BMI result Body Mass Index 26.9 Const General: cooperative, no acute distress, well developed and well groomed Nutritional Appearance: average body habitus and well nourished Orientation/consciousness: oriented to person, oriented to place and oriented to time Limitations: No language barrier HEENT Head: Yes normocephalic and Yes atraumatic Eyes General: appearance normal, both eyes and all related structures Pupils: Equal, round and reactive pupils present Neck Neck: Yes normal visual inspection and Yes no lymphadenopathy Thyroid: Thyroid normal Resp Effort & Inspection: normal respiratory effort and able to speak in complete sentences Auscultation: clear to auscultation bilaterally Cardio Rate: regular rate Rhythm: regular rhythm Heart sounds: Normal, physiologic split S2 sound present Peripheral pulses: radial pulses present and posterior tibial pulses present GI Inspection: No distended and No Abdominal panniculus present Palpation (GI): Soft to palpation, nontender, no guarding, not rigid and No hepatosplenomegaly present Percussion: Yes normal to percussion Auscultation: normal bowel sounds Rectal Exam - Female: deferred Skin General skin exam: no rashes or lesions noted, turgor normal, skin not dry, no jaundice, No spider nevi and no striae Rashes: no rashes Nails: normal Neuro General: oriented to person, oriented to place and oriented to time Cranial nerves: Yes Equal, round and reactive pupils present and Yes Normal hearing present Speech: No Abnormal speech present Extrem General: Yes normal to inspection, No clubbing, No cyanosis and No edema Psych Appearance: grossly normal and well kempt Mental Status: mental status grossly normal Speech and movement: Normal speech and movement present Affect: normal affect Attitude: cooperative Thought process: Normal thought process present and not confabulating Thought content: Normal thought content present Insight: Limited insight present (Psych) Judgement: Limited judgement present (Psych) Assessment & Plan Assessment & Plan (1) Chronic GERD: Code(s): K21.9 - Gastro-esophageal reflux disease without esophagitis (2) Esophageal dysmotility: Code(s): K22.4 - Dyskinesia of esophagus (3) Epigastric pain: Code(s): R10.13 - Epigastric pain (4) Dysphagia: Comment: of water mid sternally Code(s): R13.10 - Dysphagia, unspecified Plan Egyptian # she declines She is here today with her who is supportive. She was having chest pain, and she was send to cardiology and was cleared from this standpoint. Then she was referred here for possible GERD and they did a study and found something weird. The symptoms actually started over 2 years ago. She is since changed her diet as she used to suffer from constipation but she is eating more fresh fruits which has helped this and she now can move her bowels every day. She has a sister who suffers from diverticulitis but she has not been afflicted with this. We reviewed the barium swallow which does show quite a lot of reflux so I think this is the most likely cause of her chest pain. She does NOT have dysphagia of solid foods but when she drinks water she has a form of dysphagia where it feels like food and water is splashing up and down in the midsternal area. This could be esophageal spasm, although it was noted that there was some degree of lack of propulsion at the end of the esophagus on the barium swallow. There is also the possibility of a stricture since she has had somewhat asymptomatic GERD for possibly 2 years or more. First going to start her on famotidine twice a day because this comes in tablet form in case she needs to grind it to facilitate her swallowing. I want to give her some relief and hopefully this will help with the swallowing until we can get an upper endoscopy to fully explore what is going on. She is also on magnesium for her Maren-Danlos syndrome but she was having trouble swallowing the big tablet and I did inform her that she could grind it up and put it with some putting. There is no family history known of esophageal cancer or gallbladder disease. Will start BID famotidine, order EGD and can consider cancelling if sx improve r/t EDS. Her only concern is for her tissue fragility because of the EDS I told her we are quite aware of the problems that could be presented in terms of scoping a patient with this syndrome, but there is also a good possibility we can solve her problem medically. ROV 4 weeks. Orders: Orders EGD with Lino - GI Use Only Today K21.9 - Gastro-esophageal reflux disease without esophagitis, K22.4 - Dyskinesia of esophagus Medications: New famotidine (Pepcid) 40 mg PO BID 60 tabs 6RF K21.9 - Gastro-esophageal reflux disease without esophagitis, R13.10 - Dysphagia, unspecified Coding Level of Care Code New Pt Level 3 (97825) Diagnoses Chronic GERD K21.9 Esophageal dysmotility K22.4 Epigastric pain R10.13 Dysphagia R13.10
== END 2023-07-03 14:25 | disposition home or self-care (01) ==
PROVIDERS: PCP Internal Medicine; Visit Provider Nurse Practitioner
DX: K21.9 Gastro-esophageal reflux disease without esophagitis (principal); K22.4 Dyskinesia of esophagus; R10.13 Epigastric pain; R13.10 Dysphagia, unspecified
CPT/HCPCS: 99203

== ENCOUNTER → 2023-07-03 13:37 | Outpatient (BNVA) | payer OTHER, SELFPAY | PROVIDERS: PCP Internal Medicine; Visit Provider Nurse Practitioner ==

== ENCOUNTER 2023-07-31 09:27 | Outpatient (AMB) | payer OTHER, SELFPAY ==
[2023-07-31 09:29] VITALS: BP 116/76; BMI 27.7
--- NOTE | 2023-07-31 09:29 | A.OFFVIS_ITS ---
Intake Vital Signs 07/31/23 09:29 Height 5 ft 7 in Weight 177 lb BMI 27.7 BP 116/76 Blood Pressure Location Lt brachial Position Sitting Intake Visit Reasons: 4 week follow up Intake Note: Patient presents to in office visit today in follow up of GERD. CC: Patient with Maren-Danlos syndrome type 4. She reports feeling better since staarting the Famotidine BID. Ednies any new GJI symptom stoday. 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 She was having chest pain, and she was send to cardiology and was cleared from this standpoint. Then she was referred here for possible GERD and they did a study and found something weird. The symptoms actually started over 2 years ago. She is since changed her diet as she used to suffer from constipation but she is eating more fresh fruits which has helped this and she now can move her bowels every day. She has a sister who suffers from diverticulitis but she has not been afflicted with this. We reviewed the barium swallow which does show quite a lot of reflux so I think this is the most likely cause of her chest pain. She does NOT have dysphagia of solid foods but when she drinks water she has a form of dysphagia where it feels like food and water is splashing up and down in the midsternal area. This could be esophageal spasm, although it was noted that there was some degree of lack of propulsion at the end of the esophagus on the barium swallow. There is also the possibility of a stricture since she has had somewhat asymptomatic GERD for possibly 2 years or more. First going to start her on famotidine twice a day because this comes in tablet form in case she needs to grind it to facilitate her swallowing. I want to give her some relief and hopefully this will help with the swallowing until we can get an upper endoscopy to fully explore what is going on. She is also on magnesium for her Maren-Danlos syndrome but she was having trouble swallowing the big tablet and I did inform her that she could grind it up and put it with some putting. There is no family history known of esophageal cancer or gallbladder disease. Will start BID famotidine, order EGD and can consider cancelling if sx improve r/t EDS. Her only concern is for her tissue fragility because of the EDS I told her we are quite aware of the problems that could be presented in terms of scoping a patient with this syndrome, but there is also a good possibility we can solve her problem medically. ROV 4 weeks. Orders: Orders EGD with Lino - G I Use Only Today K21.9 - Gastro-eso phageal reflux dis ease without esoph agitis, K22.4 - Dy skinesia of esopha helen Medications: New famotidine (Pepcid ) 40 mg PO BID 60 t abs 6RF K21.9 - Gastro-eso phageal reflux dis ease without esoph agitis, R13.10 - D ysphagia, unspecif ied EGD Scheduled for 10/12/2023 [place] TODAY'S VISIT She is greatly improved with the famotidine. Her swallowing has been good and the pain in her epigastric area and chest is gone. ROV after EGD 10/08 [facility] Medical History Physical exam Neck pain Muscle spasm Back pain Numbness and tingling Physical exam Diverticulitis Family history of hypertension Well woman exam with routine gynecological exam Hospital discharge follow-up Vertigo Transient global amnesia Vertigo Chest pain Dystonia Hyperthyroidism Skin lesion Mild asthma Migraines Surgical History No pertinent past surgical history Family History Father Diabetes Hypertension H/O heart surgery Mother Hypertension Maren-Danlos syndrome Maternal Grandfather Cancer Maternal Aunt Cancer Breast cancer Sister Maren-Danlos syndrome Heart disease Paternal Uncle FH: prostate cancer Social History Housing: Apartment Alcohol intake: never Patient Tobacco Use Status: Never used Tobacco e-Cigarette/Vaping Use: Never Used Second Hand Smoke Exposure: No service: No Current occupational status: employed Current occupational exposures/hazards: No Cognitive needs: No Hearing needs: No Vision needs: Yes Review of Systems Const Denies fatigue, Denies fever(s), Denies night sweats, Denies poor appetite and Denies weight loss Eyes Details: glasses Reports requires corrective lenses ENT Reports Normal hearing present, Denies dental pain, Reports dysphagia, Denies hearing loss, Denies mouth pain, Denies odynophagia, Denies throat swelling, Denies tongue swelling and Reports other (Dentition adequate) Card Reports no additional complaints Resp Reports no additional complaints GI Details: Denies abdominal pain, Denies melena, Denies bloating, Denies hematochezia, Denies constipation, Denies GI cramping, Reports dysphagia, Denies excessive flatus, Denies early satiety, Reports heartburn, Denies diarrhea, Denies nausea, Denies odynophagia, Denies vomiting and Denies hematemesis Skin/Breast Denies pruritus, Denies lesions, Denies rash and Denies jaundice Neuro Reports Normal hearing present and Denies Abnormal speech present Endo Denies fatigue Aller/Immun Denies throat swelling and Denies tongue swelling Physical Exam Vital Signs: Last Vital Signs BP 116/76 07/31/23 09:29 BMI result Body Mass Index 27.7 Const General: cooperative, no acute distress, well developed and well groomed Nutritional Appearance: average body habitus and well nourished Orientation/consciousness: oriented to person, oriented to place and oriented to time Limitations: No language barrier HEENT Head: Yes normocephalic and Yes atraumatic Eyes General: appearance normal, both eyes and all related structures Pupils: Equal, round and reactive pupils present Neck Neck: Yes normal visual inspection and Yes no lymphadenopathy Thyroid: Thyroid normal Resp Effort & Inspection: normal respiratory effort and able to speak in complete sentences Auscultation: clear to auscultation bilaterally Cardio Rate: regular rate Rhythm: regular rhythm Heart sounds: Normal, physiologic split S2 sound present Peripheral pulses: radial pulses present and posterior tibial pulses present GI Inspection: No distended and No Abdominal panniculus present Palpation (GI): Soft to palpation, nontender, no guarding, not rigid and No hepatosplenomegaly present Percussion: Yes normal to percussion Auscultation: normal bowel sounds Rectal Exam - Female: deferred Skin General skin exam: no rashes or lesions noted, turgor normal, skin not dry, no jaundice, No spider nevi and no striae Rashes: no rashes Nails: normal Neuro General: oriented to person, oriented to place and oriented to time Cranial nerves: Yes Equal, round and reactive pupils present and Yes Normal hearing present Speech: No Abnormal speech present Extrem General: Yes normal to inspection, No clubbing, No cyanosis and No edema Psych Appearance: grossly normal and well kempt Mental Status: mental status grossly normal Speech and movement: Normal speech and movement present Affect: normal affect Attitude: cooperative Thought process: Normal thought process present and not confabulating Thought content: Normal thought content present Insight: Fair insight present (Psych) Judgement: Fair judgement present (Psych) Assessment & Plan Assessment & Plan (1) Dysphagia: Comment: of water mid sternally Code(s): R13.10 - Dysphagia, unspecified (2) Esophageal dysmotility: Code(s): K22.4 - Dyskinesia of esophagus (3) Epigastric pain: Code(s): R10.13 - Epigastric pain (4) Maren-Danlos syndrome, type 4: Code(s): Q79.63 - Vascular Maren-Danlos syndrome (5) Chronic GERD: Code(s): K21.9 - Gastro-esophageal reflux disease without esophagitis Plan She is greatly improved with the famotidine. Her swallowing has been good and the pain in her epigastric area and chest is gone. ROV after EGD 10/08 Coding Level of Care Code Est Pt Level 3 (34104) Diagnoses Dysphagia R13.10 Esophageal dysmotility K22.4 Epigastric pain R10.13 Maren-Danlos syndrome, type 4 Q79.63 Chronic GERD K21.9
== END 2023-07-31 10:15 | disposition home or self-care (01) ==
PROVIDERS: PCP Internal Medicine; Visit Provider Nurse Practitioner
DX: R13.10 Dysphagia, unspecified (principal); K22.4 Dyskinesia of esophagus; R10.13 Epigastric pain; Q79.63 Vascular Ehlers-Danlos syndrome; K21.9 Gastro-esophageal reflux disease without esophagitis
CPT/HCPCS: 99213

== ENCOUNTER → 2023-07-31 09:27 | Outpatient (BNVA) | payer OTHER, SELFPAY | PROVIDERS: PCP Internal Medicine; Visit Provider Nurse Practitioner ==

== ENCOUNTER 2023-09-21 15:31 | Outpatient (AMB) | payer OTHER, SELFPAY ==
[2023-09-21 15:33] VITALS: BP 112/72; BMI 28.0
--- NOTE | 2023-09-21 15:33 | A.OFFPC_ITS ---
Vital Signs 09/21/23 15:33 Height 5 ft 7 in Weight 179 lb BMI 28.0 BP 112/72 Blood Pressure Location Lt brachial Position Sitting Intake Visit Reasons: Annual Exam Intake Note: Patient here for a physical exam Termite Technician Required: No Accompanied by: Self / Same As Patient Allergies No Known Allergies Allergy (Verified 09/21/23 15:46) Medication List - Last Reconciled 09/21/23 by Blanca Chauhan MD amitriptyline 10 mg PO BEDTIME arm brace (Wrist Support One Size) As directed famotidine (Pepcid) 40 mg PO BID magnesium glycinate 100 mg PO .qhs methimazole 2.5 mg PO DAILY sumatriptan succinate (Imitrex) take 1 tab at onset of headache; if no relief may repeat 1 tab after at least 2 hrs; max = 4 tabs/24 hr PO Ventolin HFA 90 mcg/actuation (albuterol sulfate) 2 puffs inhalation Q6H PRN 30 days NS Tobacco use date assessed: 09/21/23 Dental Screening Dental Screen Date: 09/21/23 Did you have a dental visit in the last 12 months?: Yes Did you have a dental problem in the last 6 months where you did not have access to dental care?: No Was dental information given to patient?: Patient has dentist HPI HPI Comments History of Present Illness Details This is a 48-year-old female that comes for her physical exam. Last mammogram was December 2022 and was normal. Last Pap smear was 2021. Has not had a colonoscopy. Will have an endoscopy soon due to mild esophageal dysmotility. No acute complaints. Has a pruritic rash in right thigh. [facility] Medical History (Updated 09/21/23 @ 15:54 by Blanca Chauhan MD) Physical exam Neck pain Muscle spasm Back pain Numbness and tingling Physical exam Diverticulitis Family history of hypertension Well woman exam with routine gynecological exam Hospital discharge follow-up Vertigo Transient global amnesia Vertigo Chest pain Dystonia Hyperthyroidism Skin lesion Mild asthma Migraines Surgical History No pertinent past surgical history Family History Father Diabetes Hypertension H/O heart surgery Mother Hypertension Maren-Danlos syndrome Maternal Grandfather Cancer Maternal Aunt Cancer Breast cancer Sister Maern-Danlos syndrome Heart disease Paternal Uncle FH: prostate cancer Social History Housing: Apartment Alcohol intake: never Patient Tobacco Use Status: Never used Tobacco e-Cigarette/Vaping Use: Never Used Second Hand Smoke Exposure: No service: No Current occupational status: employed Current occupational exposures/hazards: No Cognitive needs: No Hearing needs: No Vision needs: Yes Questionnaire PHQ-9 Over the last 2 weeks, how often have you been bothered by any of the following problems? 1. Little interest or pleasure in doing things: not at all 2. Feeling down, depressed, or hopeless: not at all 3. Trouble falling or staying asleep, or sleeping too much: several days 4. Feeling tired or having little energy: not at all 5. Poor appetite or overeating: not at all 6. Feeling bad about yourself - or that you are a failure or have let yourself or your family down: not at all 7. Trouble concentrating on things, such as reading the newspaper or watching television: not at all 8. Moving or speaking so slowly that other people could have noticed. Or the opposite - being so fidgety or restless that you have been moving around a lot more than usual: not at all 9. Thoughts that you would be better off or of hurting yourself in some way: not at all Total score: 1 Depression Screening Interpretation: Negative Depression Screening Done: Yes 78018 - PHQ-9 Billing: Yes Source: Developed by Drs. Jaime Dang, Anamaria Tamayo, Omari Garg and colleagues, with an educational christiano from [employer]. Thrive Questionnaire Date Thrive assessed: 09/21/23 I am a: Patient What is your living situation today?: I have a steady place to live Within the past 12 months, did the food you bought not last and you didn't have the money to get more?: Never true Within the past 12 months, did you worry whether your food would run out before you got money to buy more?: Never true Do you have trouble paying for medicines?: No Do you have trouble getting transportation to medical appointments?: No Do you have trouble paying your heating and electricity bill?: No Do you have trouble taking care of your child, family member or friend?: No Do you have trouble with day-to-day activities such as bathing, preparing meals, shopping, managing finances, etc.?: No Are you currently unemployed and looking for a job?: No Are you interested in more education?: No Please select the resources that you would like help with: None Currently or been in a relationship where the following occur: no concerns reported THRIVE Score: 0 AUDIT C Alcohol Use Questionnaire (AUDIT-C) 1. How often do you have a drink containing alcohol?: Monthly or less 2. How many drinks containing alcohol do you have on a typical day when you are drinking?: 1 or 2 3. How often do you have six or more drinks on one occasion?: Never Total Score: 1 HOSEA-7 AMB Questionnaire HOSEA-7 Date HOSEA - 7 assessed: 09/21/23 Feeling nervous, anxious, or on edge: 1 = Several days Not being able to stop or control worryin = Not at all Worrying too much about different things: 1 = Several days Trouble relaxin = Not at all Being so restless that it is hard to sit still: 0 = Not at all Becoming easily annoyed or irritable: 1 = Several days Feeling afraid as if something awful might happen: 0 = Not at all Total HOSEA-7 score (0-4 normal; 5-9 mild; 10-14 moderate; 15-21 severe): 3 Source: Developed by Drs. Jaime Dang, Anamaria Tamayo, Omari Garg and colleagues, with an educational christiano from [employer]. HOSEA-7 Assessment Billing HOSEA-7 Assessment Tool: HOSEA-7 Assessment 68118 Review of Systems Const All systems reviewed & are unremarkable except as noted in HPI and below Eyes Reports no additional complaints, Denies change in vision and Denies other visual disturbances Card Denies chest pain at rest, Denies chest pain with activity, Denies edema, Denies irregular heart rhythm, Denies claudication, Denies dyspnea, Denies dyspnea on exertion, Denies orthopnea, Denies paroxysmal nocturnal dyspnea and Denies slow heart rate Resp Denies cough, Denies dyspnea and Denies dyspnea on exertion GI Denies abdominal pain, Denies change in bowel habits, Denies excessive flatus, Denies nausea and Denies vomiting Denies urinary incontinence, Denies urinary hesitancy and Denies urinary urgency Physical exam (Primary Care) Vital Signs: Last Vital Signs BP 112/72 09/21/23 15:33 BMI result Body Mass Index 28.0 Tobacco/Smoking Status: Tobacco use Status Tobacco use date assessed 09/21/23 09/21/23 15:37 Patient Tobacco Use Status Never used Tobacco 09/21/23 15:37 Tobacco use type 12/10/21 17:59 e-Cigarette/Vaping Use Never Used 09/21/23 15:37 PHQ-9: PHQ-9 Score PHQ-9: Total score 1 09/21/23 15:49 Depression Screening Interpretation: Negative Thrive Assessment: Date of Thrive Assessment Date Thrive assessed 09/21/23 09/21/23 15:37 Currently or been in a relationship where the following occur: no concerns reported Const Orientation/consciousness: patient oriented x3 HENMT Head: Yes normal to inspection, Yes normocephalic and Yes atraumatic Ears: external ears normal Eyes General: appearance normal, both eyes and all related structures Eyelids: Yes eyelids normal Conjunctivae: conjunctivae normal Neck Neck: Yes normal visual inspection and Yes supple Resp Effort & Inspection: normal respiratory effort Auscultation: clear to auscultation bilaterally Cardio Jugular venous distension: no JVD Rate: regular rate Rhythm: regular rhythm Heart sounds: S1 normal heart sound present and S2 normal heart sound present GI Inspection: Yes normal to inspection Palpation (GI): Soft to palpation and nontender Auscultation: normal bowel sounds Skin General skin exam: no rashes or lesions noted Neuro General: patient oriented x3 and no focal motor deficits Extrem General: Yes full ROM Psych Appearance: grossly normal Assessment and Plan Assessment & Plan (1) Physical exam: Code(s): Z00.00 - Encounter for general adult medical examination without abnormal findings Plan: Repeat in a year Orders: Orders Lipid Panel Today Z00.00 - Encounter for general adult medical examination without abnormal findings Comprehensive [place]. Panel Fast Today Z00.00 - Encounter for general adult medical examination without abnormal findings Medications: New hydrocortisone 1% (Anti-Itch (hydrocortisone)) 1 appl topical TID PRN 28.4 grams 0RF skin irritation 2 weeks Coding Level of Care Code Est Pt Prev Care 40-64y(84205) Diagnoses Physical exam Z00.00 Additional Codes HOSEA-7 Assessment Billing - HOSEA-7 Assessment Tool: HOSEA-7 Assessment 45088 ([id number]) Time Spent (min) 33
== END 2023-09-21 16:02 | disposition home or self-care (01) ==
PROVIDERS: PCP Internal Medicine; Visit Provider Internal Medicine
DX: Z00.00 Encounter for general adult medical examination without abnormal findings (principal)
CPT/HCPCS: 99396

== ENCOUNTER 2023-09-22 11:29 | Day surgery (SDC) | payer OTHER, SELFPAY ==
--- NOTE | 2023-09-21 13:03 | HO.ANESPROP2 ---
Documented by User: Alyssa Arthur NP 09/21/23 13:03 HPI - Anesthesia Eval Consult details Narrative: 48yo F for Upper Endoscopy PMF Active Problems Active Problems: All Active Problems Dysphagia (Acute) Esophageal dysmotility (Acute) Chronic GERD (Acute) Epigastric pain (Acute) Right hand pain (Acute) Depression with anxiety (Acute) Leg weakness, bilateral (Acute) Maren-Danlos syndrome, type 4 (Acute) Cervical cancer screening (Acute) Vertigo (Acute) Transient global amnesia (Acute) Heart palpitations (Acute) Chest pain (Acute) Dystonia (Acute) Hyperthyroidism (Acute) Skin lesion (Acute) Mild asthma (Acute) Migraines (Acute) Past Medical History Medical History (Updated 09/21/23 @ 15:54 by Blanca Chauhan MD) Physical exam Neck pain Muscle spasm Back pain Numbness and tingling Physical exam Diverticulitis Family history of hypertension Well woman exam with routine gynecological exam Hospital discharge follow-up Vertigo Transient global amnesia Vertigo Chest pain Dystonia Hyperthyroidism Skin lesion Mild asthma Migraines Family History Family History Father Diabetes Hypertension H/O heart surgery Mother Hypertension Maren-Danlos syndrome Maternal Grandfather Cancer Maternal Aunt Cancer Breast cancer Sister Maren-Danlos syndrome Heart disease Paternal Uncle FH: prostate cancer Surgical History Surgical History No pertinent past surgical history Social History Social History Housing: Apartment Alcohol intake: never Patient Tobacco Use Status: Never used Tobacco e-Cigarette/Vaping Use: Never Used Second Hand Smoke Exposure: No Use of substances other than those prescribed or required for medical reasons: No Are you DNR?: No Advance Directives: No Advance Directives Information Provided: Yes service: No Current occupational status: employed Current occupational exposures/hazards: No Cognitive needs: No Hearing needs: No Vision needs: Yes Meds Allergies Allergy/AdvReac Type Severity Reaction Status Date / Time No Known Allergies Allergy Verified 09/21/23 15:46 Home Medications ?Medication ?Instructions ?Recorded ?Confirmed ?Last Taken ?Type methimazole 5 mg tablet 2.5 mg PO DAILY 08/12/22 09/22/23 Unknown History Assessment and Plan Assessment Anesthesia Assessment: Chart Reviewed Documented by User: Ranjith Ragsdale MD 09/22/23 12:41 [facility] Past Medical History Medical History (Updated 09/21/23 @ 15:54 by Blanca Chauhan MD) Physical exam Neck pain Muscle spasm Back pain Numbness and tingling Physical exam Diverticulitis Family history of hypertension Well woman exam with routine gynecological exam Hospital discharge follow-up Vertigo Transient global amnesia Vertigo Chest pain Dystonia Hyperthyroidism Skin lesion Mild asthma Migraines Family History Family History Father Diabetes Hypertension H/O heart surgery Mother Hypertension Maren-Danlos syndrome Maternal Grandfather Cancer Maternal Aunt Cancer Breast cancer Sister Maren-Danlos syndrome Heart disease Paternal Uncle FH: prostate cancer Family history of problems with anesthesia: No Surgical History Surgical History No pertinent past surgical history History of Problems with Anesthesia: No Social History Social History Housing: Apartment Alcohol intake: never Patient Tobacco Use Status: Never used Tobacco e-Cigarette/Vaping Use: Never Used Second Hand Smoke Exposure: No Use of substances other than those prescribed or required for medical reasons: No Are you DNR?: No Advance Directives: No Advance Directives Information Provided: Yes service: No Current occupational status: employed Current occupational exposures/hazards: No Cognitive needs: No Hearing needs: No Vision needs: Yes Meds Allergies Allergy/AdvReac Type Severity Reaction Status Date / Time No Known Allergies Allergy Verified 09/21/23 15:46 Home Medications ?Medication ?Instructions ?Recorded ?Confirmed ?Last Taken ?Type methimazole 5 mg tablet 2.5 mg PO DAILY 08/12/22 09/22/23 Unknown History Exam Airway Mallampati Class: I TM Dist: >3cm Neck ROM: Full Loose/Missing/Broken Teeth: No Heart: rrr Lungs: cta Assessment and Plan Final Anesthetic Review Family History of Problems with Anesthesia: No History of Problems with Anesthesia: No NPO: Yes ASA Class: III Final Preanesthetic Review: No Changes in Pt Med Stat, Meds/Allgs Chart Reviewed, Consent Obtained/Reviewed and Anes Risks/Benef Reviewed Patient Risk: Intermediate Procedure Risk: Intermediate Anesthetic Plan Anesthetic Plan: MAC: Disposition: Standard PACU
[2023-09-22 12:01] VITALS: BMI 25.8
[2023-09-22 12:08] VITALS: BP 138/72; PULSE 85; RESP 18; TEMP 36.9; O2SAT 100
[2023-09-22 12:14] LABS: UPreg QC Valid YES; Urine Pregnancy NEGATIVE (NEGATIVE)
[2023-09-22] MEDS: Lactated Ringers 1,000 ML 100 ML IVCONT (12:21)
--- NOTE | 2023-09-22 12:57 | MHC.SHP ---
Pre-Procedural Eval Section A - 24 Hr Update-Section A only Date of Service: 09/22/23 Section B - Complete if H&P > 30 days Chief Complaint: Gastro-esophageal reflux disease without esophagit Relevant Family History (Specify if Yes): No Relevant Social History: None Present Medications: see Short Stay Collaborative assessment Medical History: Significant History (Neck pain Muscle spasm Back pain Numbness and tingling Physical exam Diverticulitis Family history of hypertension Well woman exam with routine gynecological exam Hospital discharge follow-up Vertigo Transient global amnesia Vertigo Chest pain Dystonia Hyperthyroidism Skin lesion Mild asthma Migrain) History of Previous Operations: No relevant previous surgery Allergies: Allergies Allergy/AdvReac Type Severity Reaction Status Date / Time No Known Allergies Allergy Verified 09/21/23 15:46 Review of Systems Sugical H&P ROS: Negative: Constitution, Cardiovascular, Respiratory, Neurological, Psychiatric, Hem-Onc, Allergic/Immunologic, Gastrointestinal, Genitourinary, Musculoskeletal, Integumentary, Endocrine and Eyes/Ears/Nose/Throat Exam Surgical H&P Exam: Normal: HEENT, Normal: Heart, Normal: Lungs, Normal: Extremities, Normal: Abdomen, Normal: Skin and Normal: Neurological Plan Diagnosis/Plan: Unchanged I have reviewed the history and physical and performed a pertinent physical examination on my patient. No changes have occurred unless specified. Time Spent With Patient Time: Total time managing care of this patient today ____ minutes.
--- NOTE | 2023-09-22 13:14 | W.PM.OPN ---
Operative Note Operative Note Date of Service: 09/22/23 Narrative: Procedure Description: EGD Indication: GERD Anesthesia: MAC FLEXIBLE TRANSORAL UPPER GASTROINTESTINAL ENDOSCOPY UPPER ENDOSCOPY Consent: Indications for the procedure and potential complications of bleeding, perforation, reaction to medications and missed diagnosis were discussed with the patient and informed consent was obtained. Instrument: Olympus GIF H 190 J mid size upper endoscope Monitoring: Vital signs and clinical assessment, continuous EKG monitoring, Pulse oximetry, Carbon Dioxide monitoring and blood pressure monitoring were done throughout the procedure. Procedure: The patient was placed in the left lateral decubitis position and pre-procedure medications were administered and a bite block was placed. The endoscope was inserted into the mouth and advanced under direct vision to the third part of duodenum. A careful inspection was made as the upper endoscope was withdrawn including a retroflexed examination of the proximal stomach; Findings and interventions are described below. Findings: Larynx:normal Esophagus: GE junction at 37 cm, diaphragm hiatus at 37 cm, normal mucosa Stomach: patchy erythema . Biopsies were obtained. Grade 2 flap valve on retroflexed examination of the cardia. Duodenum: Normal bulb and descending duodenum, Intervention: Biopsies as noted above, Impression/Findings: mild gastritis PLAN: GERD precautions cont with famotidine as has helped her a lot
[2023-09-22 13:32] VITALS: BP 171/99; PULSE 95; RESP 16; TEMP 36.6; O2SAT 96
[2023-09-22 13:45] VITALS: BP 166/102; PULSE 95; RESP 16; O2SAT 99
[2023-09-22 14:00] VITALS: BP 139/84; PULSE 74; RESP 16; TEMP 36.3; O2SAT 99
== END 2023-09-22 14:57 | disposition home or self-care (01) ==
PROVIDERS: Nurse Practitioner; PCP Internal Medicine; Visit Provider Internal Medicine Gastroenterology
PROC: 0DJ08ZZ Inspection of Upper Intestinal Tract, Via Natural or Artificial Opening Endoscopic (ICD-10-PCS; CPT 43235; principal; 2023-09-22 14:40)
DX: K21.9 Gastro-esophageal reflux disease without esophagitis (principal); K29.50 Unspecified chronic gastritis without bleeding; Q79.63 Vascular Ehlers-Danlos syndrome; R13.10 Dysphagia, unspecified; K22.4 Dyskinesia of esophagus; K44.9 Diaphragmatic hernia without obstruction or gangrene; R07.9 Chest pain, unspecified; R42 Dizziness and giddiness; J45.909 Unspecified asthma, uncomplicated; E05.90 Thyrotoxicosis, unspecified without thyrotoxic crisis or storm; G24.9 Dystonia, unspecified; G45.4 Transient global amnesia; G43.909 Migraine, unspecified, not intractable, without status migrainosus; Z79.899 Other long term (current) drug therapy
CPT/HCPCS: 43239; 81025; 88305; 88313; 88342; J1596; J2704

== ENCOUNTER → 2023-09-22 11:29 | Outpatient (BNV) | payer OTHER, SELFPAY | PROVIDERS: PCP Internal Medicine; Visit Provider Internal Medicine Gastroenterology | DX: K29.70 Gastritis, unspecified, without bleeding (principal) | CPT/HCPCS: 43239 ==

== ENCOUNTER 2023-10-09 10:47 | Outpatient (AMB) | payer OTHER, SELFPAY ==
[2023-10-09 10:54] VITALS: BP 130/78; BMI 27.6
--- NOTE | 2023-10-09 10:54 | A.OFFVIS_ITS ---
Vital Signs 10/09/23 10:54 Height 5 ft 7 in Weight 176 lb 5.917 oz BMI 27.6 BP 130/78 Blood Pressure Location Lt brachial Position Sitting Intake Visit Reasons: S/P EGD; Dr. Stover Intake Note: Beti in office today in follow up of EGD on 09/22/2023. CC: Patient states that she has been doing better with Famotidine. Denies having any GI symptoms. Security Analyst Required: No Accompanied by: Self / Same As Patient Allergies No Known Allergies Allergy (Verified 10/09/23 11:01) HPI HPI S/P EGD; Dr. Stover: Details: Assessment & Plan (1) Dysphagia: Comment: of water mid sternally Code(s): R13.10 - Dysphagia, unspecified (2) Esophageal dysmotility: Code(s): K22.4 - Dyskinesia of esophagus (3) Epigastric pain: Code(s): R10.13 - Epigastric pain (4) Maren-Danlos syndrome, type 4: Code(s): Q79.63 - Vascular Maren-Danlos syndrome (5) Chronic GERD: Code(s): K21.9 - Gastro-esophageal reflux disease without esophagitis Plan She is greatly improved with the famotidine. Her swallowing has been good and the pain in her epigastric area and chest is gone. ROV after EGD 10/08 EGD 09/22/23 Findings: Larynx:normal Esophagus: GE junction at 37 cm, diaphragm hiatus at 37 cm, normal mucosa Stomach: patchy erythema . Biopsies were obtained. Grade 2 flap valve on retroflexed examination of the cardia. Duodenum: Normal bulb and descending duodenum, Intervention: Biopsies as noted above, Impression/Findings: mild gastritis PLAN: GERD precautions cont with famotidine as has helped her a lot BIOPSY Received: 09/22/23 Diagnosis Stomach, biopsy: Oxyntic mucosa with mild chronic inactive inflammation; no Helicobacter organisms seen TODAY'S VISIT She is feeling better with the famotidine! They tried to do a LUND study and she declined. She also discovered that her GI sx started after she started amitriptyline, so she stopped it and her ongoing fatigue and twitches she was having. She will speak to her neurolgist about this. I advised that she can try going off of the famotidine to see if the TCA drove her GERD sx as well. ROV 6 mos. [facility] Medical History Cervical cancer screening Epigastric pain Physical exam Neck pain Muscle spasm Back pain Numbness and tingling Physical exam Diverticulitis Family history of hypertension Well woman exam with routine gynecological exam Hospital discharge follow-up Vertigo Transient global amnesia Vertigo Chest pain Dystonia Hyperthyroidism Skin lesion Mild asthma Migraines Surgical History History of esophagogastroduodenoscopy (EGD) Family History Father Diabetes Hypertension H/O heart surgery Mother Hypertension Maren-Danlos syndrome Maternal Grandfather Cancer Maternal Aunt Cancer Breast cancer Sister Maren-Danlos syndrome Heart disease Paternal Uncle FH: prostate cancer Social History Housing: Apartment Alcohol intake: never Patient Tobacco Use Status: Never used Tobacco e-Cigarette/Vaping Use: Never Used Second Hand Smoke Exposure: No service: No Current occupational status: employed Current occupational exposures/hazards: No Cognitive needs: No Hearing needs: No Vision needs: Yes Review of Systems Const Denies fatigue, Denies fever(s), Denies night sweats, Denies poor appetite and Denies weight loss Eyes Details: glasses Reports requires corrective lenses ENT Reports Normal hearing present, Denies dental pain, Denies dysphagia, Denies hearing loss, Denies mouth pain, Denies odynophagia, Denies throat swelling, Denies tongue swelling and Reports other (Dentition adequate) Card Reports no additional complaints Resp Reports no additional complaints GI Details: Denies abdominal pain, Denies melena, Denies bloating, Denies hematochezia, Denies constipation, Denies GI cramping, Denies dysphagia, Denies excessive flatus, Denies early satiety, Reports heartburn, Denies diarrhea, Denies nausea, Denies odynophagia, Denies vomiting and Denies hematemesis Skin/Breast Denies pruritus, Denies lesions, Denies rash and Denies jaundice Neuro Reports Normal hearing present and Denies Abnormal speech present Endo Denies fatigue Aller/Immun Denies throat swelling and Denies tongue swelling Physical Exam Vital Signs: Last Vital Signs BP 130/78 10/09/23 10:54 BMI result Body Mass Index 27.6 Const General: cooperative, no acute distress, well developed and well groomed Nutritional Appearance: average body habitus and well nourished Orientation/consciousness: oriented to person, oriented to place and oriented to time Limitations: No language barrier HEENT Head: Yes normocephalic and Yes atraumatic Eyes General: appearance normal, both eyes and all related structures Pupils: Equal, round and reactive pupils present Neck Neck: Yes normal visual inspection and Yes no lymphadenopathy Thyroid: Thyroid normal Resp Effort & Inspection: normal respiratory effort and able to speak in complete sentences Auscultation: clear to auscultation bilaterally Cardio Rate: regular rate Rhythm: regular rhythm Heart sounds: Normal, physiologic split S2 sound present Peripheral pulses: radial pulses present and posterior tibial pulses present GI Inspection: No distended and No Abdominal panniculus present Palpation (GI): Soft to palpation, nontender, no guarding, not rigid and No hepatosplenomegaly present Percussion: Yes normal to percussion Auscultation: normal bowel sounds Rectal Exam - Female: deferred Skin General skin exam: no rashes or lesions noted, turgor normal, skin not dry, no jaundice, No spider nevi and no striae Rashes: no rashes Nails: normal Neuro General: oriented to person, oriented to place and oriented to time Cranial nerves: Yes Equal, round and reactive pupils present and Yes Normal hearing present Speech: No Abnormal speech present Extrem General: Yes normal to inspection, No clubbing, No cyanosis and No edema Psych Appearance: grossly normal and well kempt Mental Status: mental status grossly normal Speech and movement: Normal speech and movement present Affect: normal affect Attitude: cooperative Thought process: Normal thought process present and not confabulating Thought content: Normal thought content present Insight: Limited insight present (Psych) Judgement: Limited judgement present (Psych) Results Reviewed Results Reviewed: EGD 09/22/23 Findings: Larynx:normal Esophagus: GE junction at 37 cm, diaphragm hiatus at 37 cm, normal mucosa Stomach: patchy erythema . Biopsies were obtained. Grade 2 flap valve on retroflexed examination of the cardia. Duodenum: Normal bulb and descending duodenum, Intervention: Biopsies as noted above, Impression/Findings: mild gastritis PLAN: GERD precautions cont with famotidine as has helped her a lot BIOPSY Received: 09/22/23 Diagnosis Stomach, biopsy: Oxyntic mucosa with mild chronic inactive inflammation; no Helicobacter organisms seen Assessment & Plan Assessment & Plan (1) Esophageal dysmotility: Code(s): K22.4 - Dyskinesia of esophagus Category: Medical (2) Dysphagia: Comment: of water mid sternally Code(s): R13.10 - Dysphagia, unspecified Category: Medical (3) Chronic GERD: Code(s): K21.9 - Gastro-esophageal reflux disease without esophagitis Category: Medical Plan She is feeling better with the famotidine! They tried to do a LUND study and she declined. She also discovered that her GI sx started after she started amitriptyline, so she stopped it and her ongoing fatigue and twitches she was having. She will speak to her neurolgist about this. I advised that she can try going off of the famotidine to see if the TCA drove her GERD sx as well. ROV 6 mos. Medications: Refilled famotidine (Pepcid) 40 mg PO BID 60 tabs 6RF K21.9 - Gastro-esophageal reflux disease without esophagitis, R13.10 - Dysphagia, unspecified Coding Level of Care Code Est Pt Level 3 (07385) Diagnoses Esophageal dysmotility K22.4 Dysphagia R13.10 Chronic GERD K21.9
== END 2023-10-09 11:19 | disposition home or self-care (01) ==
PROVIDERS: PCP Internal Medicine; Visit Provider Nurse Practitioner
DX: K22.4 Dyskinesia of esophagus (principal); R13.10 Dysphagia, unspecified; K21.9 Gastro-esophageal reflux disease without esophagitis
CPT/HCPCS: 99213

== ENCOUNTER → 2023-10-09 10:47 | Outpatient (BNVA) | payer OTHER, SELFPAY | PROVIDERS: PCP Internal Medicine; Visit Provider Nurse Practitioner ==

== ENCOUNTER 2024-03-21 12:01 | Outpatient (AMB) | payer OTHER, SELFPAY ==
--- NOTE | 2024-03-21 12:31 | HO.NEPHOV ---
Vital Signs 03/21/24 12:32 Height 5 ft 7 in Weight 175 lb BMI 27.4 BP 124/80 Blood Pressure Location Rt brachial Position Sitting Pulse 83 Pulse Source Pulse Oximeter Pulse Oximetry (%) 98 Oxygen Delivery Method Room Air Intake Visit Reasons: 6 mnts f/u appt Line Tester Required: No Accompanied by: Self / Same As Patient Allergies No Known Allergies Allergy (Verified 03/21/24 12:34) Medication List - Last Reconciled 03/21/24 by Orin Qureshi MD amitriptyline 10 mg PO BEDTIME arm brace (Wrist Support One Size) As directed famotidine (Pepcid) 40 mg PO BID hydrocortisone 1% (Anti-Itch (hydrocortisone)) 1 appl topical TID PRN 2 weeks magnesium glycinate 400 mg (4 x 100 mg magnesium) PO .qhs methimazole 5 mg PO DAILY nirmatrelvir-ritonavir 300 mg (150 mg x 2)-100 mg (Paxlovid) 3 ea PO PER PKG DIR 5 days sumatriptan succinate (Imitrex) take 1 tab at onset of headache; if no relief may repeat 1 tab after at least 2 hrs; max = 4 tabs/24 hr PO Ventolin HFA 90 mcg/actuation (albuterol sulfate) 2 puffs inhalation Q6H PRN 30 days NS HPI Comments Details: 47-year-old female with EHler Danlos syndrome, hypertension, hyperthyroidism comes for follow up of muscle spasm and migraine. she is doing good. Facial pain and spasm is better with magnesium and amitriptyline. She sleeps better for 7 hrs with amitriptyline 10 mg. Migraines have decreased significantly. Patient tried gabapentin in the past, it helped but she stopped because of intolerance. [facility] Medical History Cervical cancer screening Epigastric pain Physical exam Neck pain Muscle spasm Back pain Numbness and tingling Physical exam Diverticulitis Family history of hypertension Well woman exam with routine gynecological exam Hospital discharge follow-up Vertigo Transient global amnesia Vertigo Chest pain Dystonia Hyperthyroidism Skin lesion Mild asthma Migraines Surgical History History of esophagogastroduodenoscopy (EGD) Family History Father Diabetes Hypertension H/O heart surgery Mother Hypertension Maren-Danlos syndrome Maternal Grandfather Cancer Maternal Aunt Cancer Breast cancer Sister Maren-Danlos syndrome Heart disease Paternal Uncle FH: prostate cancer Social History Housing: Apartment Alcohol intake: never Patient Tobacco Use Status: Never used Tobacco e-Cigarette/Vaping Use: Never Used Second Hand Smoke Exposure: No service: No Current occupational status: employed Current occupational exposures/hazards: No Cognitive needs: No Hearing needs: No Vision needs: Yes Physical Exam Vital Signs: Last Vital Signs Pulse 83 03/21/24 12:32 BP 124/80 03/21/24 12:32 Pulse Ox 98 03/21/24 12:32 Oxygen Delivery Method Room Air 03/21/24 12:32 BMI result Body Mass Index 27.4 Const General: cooperative, healthy appearing, comfortable and no acute distress Nutritional Appearance: average body habitus Orientation/consciousness: patient oriented x3 HEENT Head: Yes normal to inspection and Yes normocephalic Eyes Pupils: Equal, round and reactive pupils present Neck Other: spasm in para spinal neck muscles , trapezius Neck: Yes normal visual inspection Neuro General: patient oriented x3, gait normal, tone normal, moves all extremities, no focal motor deficits and CN's II-XI intact bilaterally Cranial nerves: Yes CN's II-XII intact bilaterally, Yes Facial sensation intact/muscles of mastication intact, Yes Equal, round and reactive pupils present, Yes Bilaterally intact EOM present and Yes Normal facial strength present Cognition (Neuro): normal cognition Gait exam (Neuro): Normal gait present Results Reviewed Nephrology Results: No Data to Display Assessment & Plan Assessment & Plan (1) Muscle spasm: Comment: Facial muscle spasm. Code(s): M62.838 - Other muscle spasm Category: Medical (2) Migraines: Code(s): G43.909 - Migraine, unspecified, not intractable, without status migrainosus Category: Medical Qualifiers: Migraine type: menstrual Status migrainosus presence: without status migrainosus Intractability: not intractable Qualified Code(s): G43.829 - Menstrual migraine, not intractable, without status migrainosus Plan Continue amitriptyline 10mg qhs and magnesium qHS as patient experiences good clinical effects. May increase manesium glycinate up to 400 mg qHS. Use imitrex 50mg as needed for acute migraine treatment. Advised patient to track migraine frequency and intensity. F/u as needed Medications: Changed From magnesium glycinate 100 mg PO .qhs 90 caps 6RF To magnesium glycinate 400 mg (4 x 100 mg magnesium) PO .qhs 360 caps 6RF Refilled amitriptyline 10 mg PO BEDTIME 90 tabs 6RF Coding Level of Care Code Est Pt Level 4 (65536) Complex EM visit Add On G2211 Diagnoses Muscle spasm M62.838 Menstrual migraine without status migrainosus, not intractable G43.829 Migraine type: menstrual Status migrainosus presence: without status migrainosus Intractability: not intractable
[2024-03-21 12:32] VITALS: BP 124/80; PULSE 83; O2SAT 98; BMI 27.4
== END 2024-03-21 12:59 | disposition home or self-care (01) ==
PROVIDERS: PCP Internal Medicine; Visit Provider Psychiatry & Neurology Neurology
DX: M62.838 Other muscle spasm (principal); G43.829 Menstrual migraine, not intractable, without status migrainosus
CPT/HCPCS: 99214; G2211

== ENCOUNTER → 2024-03-21 12:01 | Outpatient (BNVA) | payer OTHER, SELFPAY | PROVIDERS: PCP Internal Medicine; Visit Provider Psychiatry & Neurology Neurology ==

== ENCOUNTER 2024-03-22 13:34 | Outpatient (AMB) | payer OTHER, SELFPAY ==
[2024-03-22 13:50] VITALS: BP 120/82; BMI 27.4
--- NOTE | 2024-03-22 13:50 | MHC.PC.OV ---
Vital Signs 03/22/24 13:50 Height 5 ft 7 in Weight 175 lb BMI 27.4 BP 120/82 Blood Pressure Location Lt brachial Position Sitting Intake Visit Reasons: migraine Paste Up Artist Required: No Accompanied by: Self / Same As Patient Allergies No Known Allergies Allergy (Verified 03/22/24 14:28) Medication List - Last Reconciled 03/22/24 by Blanca Cahuhan MD amitriptyline 10 mg PO BEDTIME arm brace (Wrist Support One Size) As directed famotidine (Pepcid) 40 mg PO BID hydrocortisone 1% (Anti-Itch (hydrocortisone)) 1 appl topical TID PRN 2 weeks magnesium glycinate 400 mg (4 x 100 mg magnesium) PO .qhs methimazole 5 mg PO DAILY sumatriptan succinate (Imitrex) take 1 tab at onset of headache; if no relief may repeat 1 tab after at least 2 hrs; max = 4 tabs/24 hr PO Ventolin HFA 90 mcg/actuation (albuterol sulfate) 2 puffs inhalation Q6H PRN 30 days NS Tobacco use date assessed: 09/21/23 Dental Screening Dental Screen Date: 03/22/24 Did you have a dental visit in the last 12 months?: Yes Did you have a dental problem in the last 6 months where you did not have access to dental care?: No Was dental information given to patient?: Patient has dentist HPI HPI Comments History of Present Illness Details This is a 48-year-old female with Maren-Danlos syndrome type 4, chronic GERD, hyperthyroidism, migraines and esophageal dysmotility that comes today for follow-up on her conditions. She has been follow by Rheumatology and recently had episodes of bilateral leg weakness after swimming in the pool and was advised to do exercise to improve muscle tone. GERD has been stable with diet and has not need famotidine. Hyperthyroidism is follow by Endocrinology which recently increase methimazole. Migraines have been stable and has not need sumatriptan in a while. No chest pain or shortness on breath. Has esophageal dysmotility and will have endoscopy in June. [facility] Medical History Cervical cancer screening Epigastric pain Physical exam Neck pain Muscle spasm Back pain Numbness and tingling Physical exam Diverticulitis Family history of hypertension Well woman exam with routine gynecological exam Hospital discharge follow-up Vertigo Transient global amnesia Vertigo Chest pain Dystonia Hyperthyroidism Skin lesion Mild asthma Migraines Surgical History History of esophagogastroduodenoscopy (EGD) Family History Father Diabetes Hypertension H/O heart surgery Mother Hypertension Maren-Danlos syndrome Maternal Grandfather Cancer Maternal Aunt Cancer Breast cancer Sister Maren-Danlos syndrome Heart disease Paternal Uncle FH: prostate cancer Social History Housing: Apartment Alcohol intake: never Patient Tobacco Use Status: Never used Tobacco e-Cigarette/Vaping Use: Never Used Second Hand Smoke Exposure: No service: No Current occupational status: employed Current occupational exposures/hazards: No Cognitive needs: No Hearing needs: No Vision needs: Yes Questionnaire Thrive Questionnaire Date Thrive assessed: 09/21/23 Are you currently unemployed and looking for a job?: No AUDIT C Alcohol Use Questionnaire (AUDIT-C) 2. How many drinks containing alcohol do you have on a typical day when you are drinking?: 1 or 2 3. How often do you have six or more drinks on one occasion?: Never Total Score: 0 HOSEA-7 AMB Questionnaire HOSEA-7 Date HOSEA - 7 assessed: 09/21/23 Source: Developed by Drs. Jaime Dang, Anamaria Tamayo, Omari Garg and colleagues, with an educational christiano from [email or web address] Review of Systems Const All systems reviewed & are unremarkable except as noted in HPI and below Card Denies chest pain at rest, Denies chest pain with activity, Denies edema, Denies irregular heart rhythm, Denies claudication, Denies dyspnea, Denies dyspnea on exertion, Denies orthopnea, Denies paroxysmal nocturnal dyspnea and Denies slow heart rate Resp Denies cough, Denies dyspnea and Denies dyspnea on exertion GI Denies abdominal pain, Denies change in bowel habits, Denies excessive flatus, Denies nausea and Denies vomiting Denies urinary incontinence, Denies urinary hesitancy and Denies urinary urgency Musc Denies atrophy, Denies deformity and Denies limited range of motion Skin/Breast Denies bleeding lesions, Denies changing lesions and Denies rash Physical exam (Primary Care) Vital Signs: Last Vital Signs BP 120/82 03/22/24 13:50 BMI result Body Mass Index 27.4 Tobacco/Smoking Status: Tobacco use Status Tobacco use date assessed 09/21/23 03/22/24 13:54 Patient Tobacco Use Status Never used Tobacco 03/22/24 13:54 Tobacco use type 12/10/21 17:59 e-Cigarette/Vaping Use Never Used 03/22/24 13:54 Thrive Assessment: Date of Thrive Assessment Date Thrive assessed 09/21/23 03/22/24 13:54 Resp Effort & Inspection: normal respiratory effort Auscultation: clear to auscultation bilaterally Cardio Jugular venous distension: no JVD Rate: regular rate Rhythm: regular rhythm Heart sounds: S1 normal heart sound present and S2 normal heart sound present Extrem General: Yes full ROM Office Procedures Flu Questionnaire Does the patient have a severe egg allergy?: No Does the patient have severe life threatening allergies?: No Does the patient have a fever or illness today?: No Has the patient ever had Guillain-Divide Syndrome?: No Has the patient ever had any past reaction to a flu shot?: No Immunizations Fluarix Triv [id number] (PF) 45 mcg (15 mcg x 3)/0.5 mL IM syringe Performing Provider: Blanca Chauhan MD [facility] [place] [facility] Administered by: ANUEL Maldonado on 03/22/24 14:43 Dose Route Admin Location Dispensed Lot Number Expiration Date [facility] [place] Robotic Technician 0.5 mL IM Left Deltoid 0.5 mL [id number] 12/12/24 [id number] [employer] VIS Given Date VIS Provided VIS Publication Date 03/22/24 Single Vaccine 21 Eligibility Eligibility Date Funding Source Not [facility] Eligible 03/22/24 Private Coding Level of Care Code Est Pt Level 4 (33831) Complex EM visit Add On G2211 Diagnoses Chronic GERD K21.9 Esophageal dysmotility K22.4 Menstrual migraine without status migrainosus, not intractable G43.829 Migraine type: menstrual Status migrainosus presence: without status migrainosus Intractability: not intractable Hyperthyroidism E05.90 Maren-Danlos syndrome, type 4 Q79.63 Time Spent (min) 21 Assessment & Plan Assessment & Plan (1) Chronic GERD: Code(s): K21.9 - Gastro-esophageal reflux disease without esophagitis Category: Medical Plan: Use famotidine as needed. (2) Esophageal dysmotility: Code(s): K22.4 - Dyskinesia of esophagus Category: Medical Plan: Follow-up with Gastroenterology. Endoscopy scheduled for June. (3) Migraines: Code(s): G43.909 - Migraine, unspecified, not intractable, without status migrainosus Category: Medical Qualifiers: Migraine type: menstrual Status migrainosus presence: without status migrainosus Intractability: not intractable Qualified Code(s): G43.829 - Menstrual migraine, not intractable, without status migrainosus Plan: Use sumatriptan as needed. Follow-up with Neurology. (4) Hyperthyroidism: Code(s): E05.90 - Thyrotoxicosis, unspecified without thyrotoxic crisis or storm Category: Medical Plan: Continue methimazole. Follow-up with endocrinology. (5) Maren-Danlos syndrome, type 4: Code(s): Q79.63 - Vascular Maren-Danlos syndrome Category: Medical Plan: Follow-up with rheumatology. Start exercise for muscle tone. Orders: Orders Vitamin D 25-OH Total 6 Months E55.9 - Vitamin D deficiency, unspecified Influenza [id number] Immunization Today Z23 - Encounter for immunization Lipid Panel 6 Months E78.5 - Hyperlipidemia, unspecified Comprehensive [place]. Panel Fast 6 Months R13.10 - Dysphagia, unspecified
== END 2024-03-22 14:49 | disposition home or self-care (01) ==
PROVIDERS: PCP Internal Medicine; Visit Provider Internal Medicine
DX: K21.9 Gastro-esophageal reflux disease without esophagitis (principal); K22.4 Dyskinesia of esophagus; G43.829 Menstrual migraine, not intractable, without status migrainosus; E05.90 Thyrotoxicosis, unspecified without thyrotoxic crisis or storm; Q79.63 Vascular Ehlers-Danlos syndrome; Z23 Encounter for immunization

== ENCOUNTER → 2024-03-22 13:34 | Outpatient (BNVA) | payer OTHER, SELFPAY | PROVIDERS: PCP Internal Medicine; Visit Provider Internal Medicine | DX: K21.9 Gastro-esophageal reflux disease without esophagitis (principal); K22.4 Dyskinesia of esophagus; G43.829 Menstrual migraine, not intractable, without status migrainosus; E05.90 Thyrotoxicosis, unspecified without thyrotoxic crisis or storm; Q79.63 Vascular Ehlers-Danlos syndrome; Z79.899 Other long term (current) drug therapy; Z23 Encounter for immunization | CPT/HCPCS: 90471; 90656 ==

== ENCOUNTER 2024-09-28 12:46 | Outpatient (AMB) | payer OTHER, SELFPAY ==
--- NOTE | 2024-09-28 12:54 | MHC.PC.OV ---
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 Accompanied by: Self / Same As Patient Allergies No Known Allergies Allergy (Verified 09/28/24 13:06) Medication List - Last Reconciled 09/28/24 by Blanca Chauhan MD amitriptyline 10 mg PO BEDTIME arm brace (Wrist Support One Size) As directed famotidine (Pepcid) 40 mg PO BID hydrocortisone 1% (Anti-Itch (hydrocortisone)) 1 appl topical TID PRN 2 weeks magnesium glycinate 400 mg (4 x 100 mg magnesium) PO .qhs methimazole 5 mg PO DAILY sumatriptan succinate (Imitrex) take 1 tab at onset of headache; if no relief may repeat 1 tab after at least 2 hrs; max = 4 tabs/24 hr PO Ventolin HFA 90 mcg/actuation (albuterol sulfate) 2 puffs inhalation Q6H PRN 30 days NS Tobacco use date assessed: 09/28/24 Dental Screening Dental Screen Date: 09/28/24 Did you have a dental visit in the last 12 months?: Yes Did you have a dental problem in the last 6 months where you did not have access to dental care?: No Was dental information given to patient?: Patient has dentist HPI HPI Comments History of Present Illness Details The patient is a 49-year-old female presenting for her annual physical examination. During the visit, it was clarified that she has a history of Hyperthyroidism and is currently taking Methimazole 5 mg for management. She mentioned that due to financial changes, she's considering transferring her endocrinology care locally to improve continuity, expressing dissatisfaction with current billing issues at [facility] where she follows her Graves' Disease. The patient confirms no recent mammogram and plans to arrange one at [facility] instead. 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 She reported no ongoing follow-up for Maren-Danlos and has seen a director game for knee issues. The family history also reveals that her father has diabetes, heart disease, and hypertension; this is relevant given her chronic GERD for which home remedies are currently used. For chronic migraines, the patient manages them with Sumatriptan as required, and her medication regimen includes Amitriptyline, although she stated not taking it currently alongside Magnesium and Pepcid. She denied active depression among mood symptoms through a low PHQ-9 score. The patient maintains a healthy lifestyle with minimal alcohol intake and no history of smoking. - Discussed the importance of updating all vaccines, specifically Tdap for pertussis - Mammogram was last performed in 2022. Needs current scheduling at [facility] - Noted that a colonoscopy screening has not been performed, recommending Cologuard at home as an alternative - Annual blood work was discussed, including a comprehensive metabolic panel (cholesterol, glucose, renal, liver function) [facility] Medical History Cervical cancer screening Epigastric pain Physical exam Neck pain Muscle spasm Back pain Numbness and tingling Physical exam Diverticulitis Family history of hypertension Well woman exam with routine gynecological exam Hospital discharge follow-up Vertigo Transient global amnesia Vertigo Chest pain Dystonia Hyperthyroidism Skin lesion Mild asthma Migraines Surgical History History of esophagogastroduodenoscopy (EGD) Family History Father Diabetes Hypertension H/O heart surgery Mother Hypertension Maren-Danlos syndrome Maternal Grandfather Cancer Maternal Aunt Cancer Breast cancer Sister Maren-Danlos syndrome Heart disease Paternal Uncle FH: prostate cancer Social History (Updated 09/28/24 @ 13:14 by Blanca Chauhan MD) Housing: Apartment Alcohol intake: current Alcohol intake frequency: holidays/special occasions only Alcohol type: wine Patient Tobacco Use Status: Never used Tobacco e-Cigarette/Vaping Use: Never Used Second Hand Smoke Exposure: No service: No Current occupational status: employed Current occupational exposures/hazards: No Cognitive needs: No Hearing needs: No Vision needs: Yes Questionnaire PHQ-9 Over the last 2 weeks, how often have you been bothered by any of the following problems? 1. Little interest or pleasure in doing things: not at all 2. Feeling down, depressed, or hopeless: not at all 3. Trouble falling or staying asleep, or sleeping too much: not at all 4. Feeling tired or having little energy: several days 5. Poor appetite or overeating: not at all 6. Feeling bad about yourself - or that you are a failure or have let yourself or your family down: not at all 7. Trouble concentrating on things, such as reading the newspaper or watching television: not at all 8. Moving or speaking so slowly that other people could have noticed. Or the opposite - being so fidgety or restless that you have been moving around a lot more than usual: not at all 9. Thoughts that you would be better off or of hurting yourself in some way: not at all Total score: 1 Depression Screening Interpretation: Negative Depression Screening Done: Yes 82202 - PHQ-9 Billing: Yes Source: Developed by Drs. Jaime Dang, Anamaria Tamayo, Omari Garg and colleagues, with an educational christiano from [employer]. Thrive Questionnaire Date Thrive assessed: 09/27/24 I am a: Patient What is your living situation today?: I have a steady place to live Within the past 12 months, did the food you bought not last and you didn't have the money to get more?: Never true Within the past 12 months, did you worry whether your food would run out before you got money to buy more?: Never true Do you have trouble paying for medicines?: No Do you have trouble getting transportation to medical appointments?: No Do you have trouble paying your heating and electricity bill?: No Do you have trouble taking care of your child, family member or friend?: No Do you have trouble with day-to-day activities such as bathing, preparing meals, shopping, managing finances, etc.?: No Are you currently unemployed and looking for a job?: No Are you interested in more education?: No Please select the resources that you would like help with: None Currently or been in a relationship where the following occur: No concerns reported THRIVE Score: 0 AUDIT C Alcohol Use Questionnaire (AUDIT-C) 1. How often do you have a drink containing alcohol?: Monthly or less 2. How many drinks containing alcohol do you have on a typical day when you are drinking?: 1 or 2 3. How often do you have six or more drinks on one occasion?: Never Total Score: 1 Score Reviewed/Action Taken: No HOSEA-7 AMB Questionnaire HOSEA-7 Date HOSEA - 7 assessed: 09/28/24 Feeling nervous, anxious, or on edge: 0 = Not at all Not being able to stop or control worryin = Not at all Worrying too much about different things: 0 = Not at all Trouble relaxin = Not at all Being so restless that it is hard to sit still: 0 = Not at all Becoming easily annoyed or irritable: 0 = Not at all Feeling afraid as if something awful might happen: 0 = Not at all Total HOSEA-7 score (0-4 normal; 5-9 mild; 10-14 moderate; 15-21 severe): 0 Source: Developed by Drs. Jaime Dang, Anamaria Tamayo, Omari Garg and colleagues, with an educational christiano from [employer]. HOSEA-7 Assessment Billing HOSEA-7 Assessment Tool: HOSEA-7 Assessment 41522 Review of Systems Const All systems reviewed & are unremarkable except as noted in HPI and below Card Denies chest pain at rest, Denies chest pain with activity, Denies edema, Denies irregular heart rhythm, Denies claudication, Denies dyspnea, Denies dyspnea on exertion, Denies orthopnea, Denies paroxysmal nocturnal dyspnea and Denies slow heart rate Resp Denies cough, Denies dyspnea and Denies dyspnea on exertion Physical exam (Primary Care) Vital Signs: Last Vital Signs BP 118/80 09/28/24 12:58 BMI result Body Mass Index 26.9 Tobacco/Smoking Status: Tobacco use Status Tobacco use date assessed 09/28/24 09/28/24 13:01 Patient Tobacco Use Status Never used Tobacco 09/28/24 13:01 Tobacco use type 12/10/21 17:59 e-Cigarette/Vaping Use Never Used 09/28/24 13:01 PHQ-9: PHQ-9 Score PHQ-9: Total score 1 09/28/24 13:01 Depression Screening Interpretation: Negative Thrive Assessment: Date of Thrive Assessment Date Thrive assessed 09/27/24 09/28/24 13:01 Currently or been in a relationship where the following occur: No concerns reported HENMT Head: Yes normal to inspection, Yes normocephalic and Yes atraumatic Ears: external ears normal Eyes General: appearance normal, both eyes and all related structures Eyelids: Yes eyelids normal Conjunctivae: conjunctivae normal Neck Neck: Yes normal visual inspection and Yes supple Resp Effort & Inspection: normal respiratory effort Auscultation: clear to auscultation bilaterally Cardio Jugular venous distension: no JVD Rate: regular rate Rhythm: regular rhythm Heart sounds: S1 normal heart sound present and S2 normal heart sound present GI Inspection: Yes normal to inspection Palpation (GI): Soft to palpation and nontender Auscultation: normal bowel sounds Skin General skin exam: no rashes or lesions noted Neuro General: no focal motor deficits Extrem General: Yes full ROM Psych Appearance: grossly normal Coding Level of Care Code Est Pt Prev Care 40-64y(28988) Diagnoses Physical exam Z00.00 Additional Codes PHQ-9 - 88096 - PHQ-9 Billing: Yes ([id number]) HOSEA-7 Assessment Billing - HOSEA-7 Assessment Tool: HOSEA-7 Assessment 05344 ([id number]) Time Spent (min) 31 Assessment & Plan Assessment & Plan (1) Physical exam: Code(s): Z00.00 - Encounter for general adult medical examination without abnormal findings Category: Medical Plan The treatment plan includes continuing Methimazole for Hyperthyroidism and prioritizing the local management of Graves' Disease to tackle billing issues. Preventative measures focus on ensuring completion of a mammogram at [facility] and carrying out a Cologuard test at home due to an unfurnished colonoscopy. For migraines, Sumatriptan use remains effective. The patient's reassurance of a low PHQ-9 means no new depression interventions. Health maintenance remains a priority with ongoing consultations for Maren-Danlos and annual reviews for GERD approaches. Patient was informed and verbally consented to the use of an ambient scribe for clinic note documentation during this visit. I have discussed with the patient the option of transferring her endocrine care locally, considering financial benefits and continuity. Risks and benefits of continuing current management were elaborately reviewed, alongside the necessity for regular screening tests such as a mammogram and colon health check. Reassurance was provided given her effective migraine control and normal PHQ-9 score indicating well-being. I encouraged the scheduling of blood work to monitor ongoing health parameters, reiterating the benefits of lifestyle interventions in managing GERD and potential thyroid issues. Orders: Orders Comprehensive [place]. Panel Fast Today Z00.00 - Encounter for general adult medical examination without abnormal findings Lipid Panel Today E78.5 - Hyperlipidemia, unspecified Referrals Endocrinology Referral E05.00 - 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 or storm Cologuard Test Z12.11 - Encounter for screening for malignant neoplasm of colon, Z12.12 - Encounter for screening for malignant neoplasm of rectum Patient Instructions: - Arrange a mammogram appointment at [facility] as soon as possible - Use Cologuard for colon cancer screening at home - Continue current medication regimen for Hyperthyroidism and chronic migraines - Follow up with a local tube bender for continuity of thyroid care - Take annual blood tests as discussed - Contact me if any new or worsening symptoms occur, particularly regarding GERD or migraines
[2024-09-28 12:58] VITALS: BP 118/80; BMI 26.9
== END 2024-09-28 13:24 | disposition home or self-care (01) ==
LOC: HO.HMCH 12:46
PROVIDERS: PCP Internal Medicine; Visit Provider Internal Medicine
DX: Z00.00 Encounter for general adult medical examination without abnormal findings (principal)

== ENCOUNTER → 2024-09-28 12:46 | Outpatient (BNVA) | payer OTHER, SELFPAY | PROVIDERS: PCP Internal Medicine; Visit Provider Internal Medicine | DX: Z00.00 Encounter for general adult medical examination without abnormal findings (principal); E05.90 Thyrotoxicosis, unspecified without thyrotoxic crisis or storm; Z79.899 Other long term (current) drug therapy | CPT/HCPCS: 96127 ==

== ENCOUNTER 2024-11-28 10:20 | Outpatient (REF) | payer OTHER, SELFPAY ==
[2024-11-28 11:32] LABS: MANUAL DIFF FLAG NO
[2024-11-28 11:39] LABS: Basophils Percent Auto 0.6 % (0-2); Eosinophils Absolute Auto 0.1 X10*3/uL (0.0-0.4); Eosinophils Percent Auto 1.4 % (0-4); Hematocrit 44.7 % (37.0-47.0); Hemoglobin 14.8 g/dl (12.0-16.0); Imm Gran Abs Auto 0.01 X10*3/uL (0.00-0.03); Imm Gran Pct Auto 0.2 % (0.0-0.4); Lymphocytes Absolute Auto 1.8 X10*3/uL (1.2-4.9); Lymphocytes Percent Auto 34.3 % (20-40); Mean Corpuscular HGB Conc 33.1 g/dl (31.0-35.0); Mean Corpuscular Hemoglobin 30.8 pg (27.0-33.0); Mean Corpuscular Volume 93.1 fL (80.0-98.0); Monocytes Absolute Auto 0.4 X10*3/uL (0.1-1.2); Monocytes Percent Auto 8.2 % (2-11); Neutrophils Absolute Auto 2.8 x10*3/uL (2.0-8.3); Neutrophils Percent Auto 55.3 % (45-73); Platelet Count 266 X10*3/uL (160-400); Red Cell Distribution Width 12.8 % (11.0-16.0); White Blood Count 5.1 X10*3/uL (4.8-10.8)
[2024-11-28 12:19] LABS: Alanine Aminotransferase 30 U/L (0-31); Alkaline Phosphatase 92 U/L (39-117); Aspartate Amino Transferase 33 U/L (5-31)
[2024-11-28 12:29] LABS: Free T4 (Free Thyroxine) 1.01 ng/dL (0.71-1.85); Thyroid Stimulating Hormone 1.52 uIU/mL (0.32-4.0)
[2024-11-29 04:13] LABS: Triiodothyronine T3 Total 86 ng/dL (76-181)
[2024-11-29 20:23] LABS: Thyroid Peroxidase Antibodies 118 IU/mL (<9)
[2024-12-01 17:48] LABS: Thyroid Stimulating Immunoglob <89 % baseline (<140)
[2024-12-02 22:28] LABS: Thyrotropin Receptor Antibody 1.33 IU/L (<=2.00)
== END 2024-11-28 10:21 | disposition home or self-care (01) ==
LOC: HO.LAB 10:20
PROVIDERS: PCP Internal Medicine; Visit Provider Student in an Organized Health Care Education/Training Program
DX: E05.00 Thyrotoxicosis with diffuse goiter without thyrotoxic crisis or storm (principal)
CPT/HCPCS: 36415; 83520; 84075; 84439; 84443; 84445; 84450; 84460; 84480; 85025; 86376

== ENCOUNTER 2024-11-28 10:20 | Outpatient (AMB) | payer OTHER, SELFPAY ==
[2024-11-28 10:23] VITALS: BP 110/80; PULSE 77; O2SAT 96; BMI 27.8
--- NOTE | 2024-11-28 10:23 | MHC.OFFVIS ---
Vital Signs 11/28/24 10:23 Height 5 ft 7 in Weight 177 lb 11.081 oz BMI 27.8 BP 110/80 Blood Pressure Location Rt brachial Position Sitting Pulse 77 Pulse Source Pulse Oximeter Pulse Oximetry (%) 96 Oxygen Delivery Method Room Air Intake Visit Reasons: Hyperthyroidism Intake Note: New patient present today for Hyperthyroidism. Accompanied by: Self / Same As Patient Allergies No Known Allergies Allergy (Verified 11/28/24 10:40) Medication List - Last Reconciled 11/28/24 by Nichole Winters MD amitriptyline 10 mg PO BEDTIME arm brace (Wrist Support One Size) As directed magnesium glycinate 400 mg (4 x 100 mg magnesium) PO .qhs methimazole 5 mg PO DAILY sumatriptan succinate (Imitrex) take 1 tab at onset of headache; if no relief may repeat 1 tab after at least 2 hrs; max = 4 tabs/24 hr PO Ventolin HFA 90 mcg/actuation (albuterol sulfate) 2 puffs inhalation Q6H PRN 30 days NS HPI Comments Details: 49-year-old female coming in today for initial evaluation of hyperthyroidism. Was previously following with [facility] endocrinology,wants to transfer care over here, was seeing Dr. Eulogio franco. first had hypothyroidism was on levothyroxine but had postivitive stimulating antibodies Was diagnosed with hyperthyroidism in 2020 was hospitalized with palpitations , blood work showed thyrotoxicosis. Started on methimazole initially on higher doses , titrated down to now methimazole 5 mg daily. On methimazole 5 mg daily for over a year. Patient currently denies heat or cold intolerance, diarrhea or constipation, hair loss, palpitation, anxiety, weight changes, mood changes, low energy, changes in appearance of eyes or vision changes, tremors, increased diaphoresis or dry skin. ? Patient does have some intermittent dysphagia. Patient denies any history of childhood neck radiation. Denies having ever used lithium, amiodarone or biotin supplements. Patient denies any family history of thyroid cancer or thyroid disease. 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 General: sitting comfortably in no acute distress HEENT: normocephalic/atraumatic, EOM intact, moist oral mucosa Neck: supple, mildly prominent thyroid Cardiac: normal heart sounds Pulm: normal breath sounds B/L, no added breath sounds Abd: not distended, no tenderness Extremities: no edema, no signs of myxedema, no tremors Laboratory Tests 11/01/18 09:15 TSH 3rd Generation 0.56 labs [facility] seen on patient portal 07/01/24 tsh 0.89 tsi 1.53 free t4 1.51 total t3 117 2020 tsi 113 tshreceptor ab 85 05/16/22 us thyroid showed no discrete nodules, heterogenous glanf [facility] History Physical exam Cervical cancer screening Epigastric pain Neck pain Muscle spasm Back pain Numbness and tingling Physical exam Diverticulitis Family history of hypertension Well woman exam with routine gynecological exam Hospital discharge follow-up Vertigo Transient global amnesia Vertigo Chest pain Dystonia Hyperthyroidism Skin lesion Mild asthma Migraines Surgical History History of esophagogastroduodenoscopy (EGD) Family History Father Diabetes Hypertension H/O heart surgery Mother Hypertension Maren-Danlos syndrome Maternal Grandfather Cancer Maternal Aunt Cancer Breast cancer Sister Maren-Danlos syndrome Heart disease Paternal Uncle FH: prostate cancer Social History Housing: Apartment Alcohol intake: current Alcohol intake frequency: holidays/special occasions only Alcohol type: wine Patient Tobacco Use Status: Never used Tobacco e-Cigarette/Vaping Use: Never Used Second Hand Smoke Exposure: No service: No Current occupational status: employed Current occupational exposures/hazards: No Cognitive needs: No Hearing needs: No Vision needs: Yes Physical Exam Vital Signs: Last Vital Signs Pulse 77 11/28/24 10:23 BP 110/80 11/28/24 10:23 Pulse Ox 96 11/28/24 10:23 Oxygen Delivery Method Room Air 11/28/24 10:23 BMI result Body Mass Index 27.8 Assessment & Plan Assessment & Plan (1) Graves disease: Code(s): E05.00 - 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 Has a history of hyperthyroidism diagnosed in 2020 when she was hospitalized with severe symptoms and was found to be in thyrotoxicosis. Started on methimazole, which has been titrated down to 5 mg daily. Patient has been on this dose for some time. Currently denies any symptoms of hyperthyroidism. She had last set of labs done in June 2024 at outside hospital which showed normal TSH, free T4. We will repeat blood work now and check her antibodies as well. Discussed with patient that about 30% of the patients have remission after 12-18 months of treatment with methimazole. More recent data has shown longer periods of treatment resulting in better remission rates as well. At this time we will plan to continue treatment with methimazole and continue adjusting the dose as needed. In the long run if she does not have remission, we also briefly discussed definitive therapy options of radioactive iodine ablation and total thyroidectomy and the need for requiring long-term levothyroxine therapy after those procedures. No features of orbitopathy, no history of smoking. At this point she has been on methimazole for about 4 years, we will check antibodies as well. We will consider over the next year to take off methimazole if possible. Plan: -continue methimazole 5 mg daily -check TSH, free T4, total T3, TSH receptor, TSI and TPO antibodies -follow up in 5-6 weeks to discuss results Plan I spent 45 minutes in reviewing the record, seeing the patient and documenting in the medical record. 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 or storm Free T4 (Free Thyroxine) Today E05.00 - 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 or storm Complete Blood Count Auto Diff Today E05.00 - 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 or storm Alanine Aminotransferase Today E05.00 - 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
== END 2024-11-28 11:10 | disposition home or self-care (01) ==
LOC: HO.ENCR 10:21
PROVIDERS: PCP Internal Medicine; Visit Provider Student in an Organized Health Care Education/Training Program
DX: E05.00 Thyrotoxicosis with diffuse goiter without thyrotoxic crisis or storm (principal)
CPT/HCPCS: 99204

== ENCOUNTER 2025-01-18 15:22 | Outpatient (AMB) | payer OTHER, SELFPAY ==
[2025-01-18 15:29] VITALS: BP 116/76; PULSE 79; O2SAT 97; BMI 28.0
--- NOTE | 2025-01-18 15:29 | A.OFFVIS_ITS ---
Vital Signs 01/18/25 15:29 Height 5 ft 7 in Weight 178 lb 14.239 oz BMI 28.0 BP 116/76 Blood Pressure Location Lt brachial Position Sitting Pulse 79 Pulse Source Pulse Oximeter Pulse Oximetry (%) 97 Oxygen Delivery Method Room Air Intake Visit Reasons: Hyperthyroidism Intake Note: Patient present today for Hyperthyroidism office visit. Senior Mobile Application Developer Required: No Accompanied by: Self / Same As Patient Allergies No Known Allergies Allergy (Verified 01/18/25 15:30) Medication List - Last Reconciled 01/18/25 by Nichole Winters MD amitriptyline 10 mg PO BEDTIME arm brace (Wrist Support One Size) As directed magnesium glycinate 400 mg (4 x 100 mg magnesium) PO .qhs methimazole 5 mg PO DAILY sumatriptan succinate (Imitrex) take 1 tab at onset of headache; if no relief may repeat 1 tab after at least 2 hrs; max = 4 tabs/24 hr PO Ventolin HFA 90 mcg/actuation (albuterol sulfate) 2 puffs inhalation Q6H PRN 30 days NS HPI Comments Details: 49-year-old female coming in today for follow up of hyperthyroidism. HPI Was previously following with [facility] end[facility]ology,wants to transfer care over here, was seeing Dr. Eulogio franco. first had hypothyroidism was on levothyroxine but had postivitive stimulating antibodies Was diagnosed with hyperthyroidism in 2020 was hospitalized with palpitations , blood work showed thyrotoxicosis. Started on methimazole initially on higher doses , titrated down to now methimazole 5 mg daily. On methimazole 5 mg daily for over a year. Patient currently denies heat or cold intolerance, diarrhea or constipation, hair loss, palpitation, anxiety, weight changes, mood changes, low energy, changes in appearance of eyes or vision changes, tremors, increased diaphoresis or dry skin. ? Patient does have some intermittent dysphagia. Patient denies any history of childhood neck radiation. Denies having ever used lithium, amiodarone or biotin supplements. Patient denies any family history of thyroid cancer or thyroid disease. 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 Denies heat or cold intolerance, diarrhea, palpitations, anxiety, weight changes, vision changes Denies tremors General: sitting comfortably in no acute distress HEENT: normocephalic/atraumatic, EOM intact, moist oral mucosa Neck: supple, mildly prominent thyroid Cardiac: normal heart sounds Pulm: normal breath sounds B/L, no added breath sounds Abd: not distended, no tenderness Extremities: no edema, no signs of myxedema, no tremors Laboratory Tests 11/01/18 09:15 TSH 3rd Generation 0.56 Laboratory Tests 11/28/24 11:31 TSH 1.52 Free T4 1.01 Total T3 86 Thyroid Stim Immunoglob <89 Thyroid Peroxidase Ab 118 H TSH Receptor Ab 1.33 labs [facility] seen on patient portal 07/01/24 tsh 0.89 tsi 1.53 free t4 1.51 total t3 117 2020 tsi 113 tshreceptor ab 85 05/16/22 us thyroid showed no discrete nodules, heterogenous glanf Physical exam [facility] Medical History Physical exam Cervical cancer screening Epigastric pain Neck pain Muscle spasm Back pain Numbness and tingling Physical exam Diverticulitis Family history of hypertension Well woman exam with routine gynecological exam Hospital discharge follow-up Vertigo Transient global amnesia Vertigo Chest pain Dystonia Hyperthyroidism Skin lesion Mild asthma Migraines Surgical History History of esophagogastroduodenoscopy (EGD) Family History Father Diabetes Hypertension H/O heart surgery Mother Hypertension Maren-Danlos syndrome Maternal Grandfather Cancer Maternal Aunt Cancer Breast cancer Sister Maren-Danlos syndrome Heart disease Paternal Uncle FH: prostate cancer Social History Housing: Apartment Alcohol intake: current Alcohol intake frequency: holidays/special occasions only Alcohol type: wine Patient Tobacco Use Status: Never used Tobacco e-Cigarette/Vaping Use: Never Used Second Hand Smoke Exposure: No service: No Current occupational status: employed Current occupational exposures/hazards: No Cognitive needs: No Hearing needs: No Vision needs: Yes Physical Exam Vital Signs: Last Vital Signs Pulse 79 01/18/25 15:29 BP 116/76 01/18/25 15:29 Pulse Ox 97 01/18/25 15:29 Oxygen Delivery Method Room Air 01/18/25 15:29 BMI result Body Mass Index 28.0 Assessment & Plan Assessment & Plan (1) Graves disease: Code(s): E05.00 - 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 Has a history of hyperthyroidism diagnosed in 2020 when she was hospitalized with severe symptoms and was found to be in thyrotoxicosis. Started on methimazole, which has been titrated down to 5 mg daily. Patient has been on this dose for some time. Currently denies any symptoms of hyperthyroidism. Discussed with patient that about 30% of the patients have remission after 12-18 months of treatment with methimazole. More recent data has shown longer periods of treatment resulting in better remission rates as well. At this time we will plan to continue treatment with methimazole and continue adjusting the dose as needed. In the long run if she does not have remission, we also briefly discussed definitive therapy options of radioactive iodine ablation and total thyroidectomy and the need for requiring long-term levothyroxine therapy after those procedures. No features of orbitopathy, no history of smoking. Continues on methimazole 5 mg 11/28/2024: Normal TSH 1.52, normal free T4 1.01, total T3 86, TSI antibodies undetectable, TSH receptor antibody with a normal range at 1.33, TPO antibodies elevated at 118. At this point she has been on methimazole for about 4 years, given negative TSI antibodies. and normal TSH receptor an hopefully there is less of a chance of relapse in her. Over the next few months we will slowly taper off her methimazole. Plan: -reduce methimazole to 2.5 mg daily -check TSH, free T4, total T3, in 6 weeks, we will reach out with the results -follow up in 3 months Plan I spent 30 minutes in reviewing the record, seeing the patient and documenting in the medical record. Orders: Orders Thyroid Stimulating Hormone 6 Weeks E05.00 - 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 or storm, E05.90 - Thyrotoxicosis, unspecified without thyrotoxic crisis or storm Free T4 (Free Thyroxine) 6 Weeks E05.00 - 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 or storm, E05.90 - Thyrotoxicosis, unspecified without thyrotoxic crisis or storm Triiodothyronine T3 Total 6 Weeks E05.00 - 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 or storm, E05.90 - Thyrotoxicosis, unspecified without thyrotoxic crisis or storm Medications: Changed From methimazole 5 mg PO DAILY 30 tabs 4RF To methimazole 2.5 mg (1/2 x 5 mg) PO DAILY 30 tabs 4RF Patient Instructions: Reduce methimazole to half a tablet (2.5 mg) daily Do blood work in 6 weeks, we will reach out with results and let you know further steps Coding Level of Care Code Est Pt Level 4 (32146) Diagnoses Graves disease E05.00 Time Spent (min) 30
--- OUTSIDE RECORDS SUMMARY | 2025-01-18 15:53 | XMS_ITS | Encounter Summary ---
Author Organization [facility] Address [address] [place] [address] Phone Care Team Providers Care Evening Anchor Name Role Phone Pcp, Unknown Primary Care Provider Unavailabl e Encounter Details Date Type Department Care Team (Late st Contact Info) Description 03/04/2024 Ancillary Orders [facility] Rheumatology [address] [place] [address] Rebeka Schwartz MD [address], [address] [place] [address] [email or web address] Maren-Danlos syndrome type IV (Primary Dx); Neck arthritis; Chronic midline low back pain without sciatica; Chronic pain of both knees; Muscle weakness Social History Tobacco Use Types Packs/Day Years Used Date Smoking Tobacco: Never Smokeless Tobacco: Never Alcohol Use Standard Drinks/Week Comments Never 0 (1 standard drink = 0.6 oz pur e alcohol) Education Answer Date Recorded Are you interested in more education? Not on luann e 10/11/2022 Are you concerned about learning? Not on file 10/11/2022 No 10/11/2022 No 10/11/2022 Digital Access Answer Date Recorded No 11/08/2022 No 11/08/2022 Reliable internet access at home? Not on file 11/08/2022 Device with a working camera? Not on file Comments Unknown Sex and Gender Information Value Date Recorded Sex Assigned at Not on file Legal Sex Female 2:37 PM EDT Gender Identity Not on file Sexual Orientation Not on file documented as of this encounter Plan of Treatment Not on file documented as of this encounter Results * XR KNEE 4 OR MORE VIEWS (BILATERAL) (03/04/2024 12:15 PM EDT) Anatomical Region Laterality Modality Knee Bilateral, Knee Right, Knee Left Computed Radiography 03/05/2024 3:26 PM EDT Impressions 03/05/2024 3:26 PM EDT Degenerative changes. Narrative 03/05/2024 3:26 PM EDT XR KNEE 4 OR MORE VIEWS (BILATERAL) Referring clinician's provided indication for this examination in Epic: Pain COMPARISON: FINDINGS: Both knees demonstrate mild degenerative changes with joint space narrowing most prominent in the RIGHT knee patellofemoral compartment. No fracture or joint effusion in either knee. Procedure Note Jem Ceja MD - 03/05/2024 XR KNEE 4 OR MORE VIEWS (BILATERAL) Referring clinician's provided indication for this examination in Epic:Pain COMPARISON: FINDINGS: Both knees demonstrate mild degenerative changes with joint spacenarrowing most prominent in the RIGHT knee patellofemoral compartment. Nofracture or joint effusion in either knee. IMPRESSION: Degenerative changes. 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 It is not the complete legal health record.[facility]
== END 2025-01-18 15:48 | disposition home or self-care (01) ==
LOC: HO.ENCR 15:23
PROVIDERS: PCP Internal Medicine; Visit Provider Student in an Organized Health Care Education/Training Program
DX: E05.00 Thyrotoxicosis with diffuse goiter without thyrotoxic crisis or storm (principal)
CPT/HCPCS: 99214

== ENCOUNTER 2025-04-03 09:31 | Outpatient (REF) | payer OTHER, SELFPAY ==
[2025-04-03 11:39] LABS: Alanine Aminotransferase 21 U/L (0-31); Albumin Level 4.4 g/dL (3.5-5.0); Alkaline Phosphatase 81 U/L (39-117); Anion Gap 14 (12-20); Aspartate Amino Transferase 21 U/L (5-31); Blood Urea Nitrogen 17 mg/dL (9-16); Calcium 9.0 mg/dL (8.4-10.2); Carbon Dioxide 25 mmol/L (22-29); Chloride 104 mmol/L (96-108); Cholesterol 213 mg/dL (<200); Estimated Glomerular Filt Rate > 60; Free T4 (Free Thyroxine) 1.08 ng/dL (0.71-1.85); HDL Cholesterol 71 mg/dL (>40); Potassium 3.6 mmol/L (3.3-5.1); Sodium 139 mmol/L (135-145); Thyroid Stimulating Hormone 1.81 uIU/mL (0.32-4.0); Total Protein 6.9 g/dL (6.5-8.0); Triglycerides 67 mg/dL (<150)
== END 2025-04-03 09:32 | disposition home or self-care (01) ==
LOC: HO.LAB 09:31
PROVIDERS: PCP Internal Medicine; Visit Provider Student in an Organized Health Care Education/Training Program
DX: Z00.00 Encounter for general adult medical examination without abnormal findings (principal); E05.00 Thyrotoxicosis with diffuse goiter without thyrotoxic crisis or storm; E78.5 Hyperlipidemia, unspecified; E55.9 Vitamin D deficiency, unspecified
CPT/HCPCS: 36415; 80053; 80061; 82306; 84439; 84443; 84480

== ENCOUNTER 2025-04-10 09:48 | Outpatient (REF) | payer OTHER, SELFPAY ==
--- NOTE | ~2025-04-10 | XR_ITS ---
EXAMINATION: XR SHOULDER, RIGHT CLINICAL INFORMATION: M25.511 - Pain in right shoulder COMPARISON: None available. TECHNIQUE: Four views of the right shoulder. FINDINGS: Mild acromioclavicular arthritis. No significant glenohumeral joint space narrowing. No visible acute fracture, dislocation or suspicious bony lesion. No abnormal soft tissue calcification.. XR/XR shoulder RT min 2V IMPRESSION: Mild acromioclavicular arthritis. Electronically signed by: Ben Portillo MD 04/10/2025 11:29 AM EDT
--- NOTE | ~2025-04-10 | XR_ITS ---
EXAMINATION: XR CERVICAL SPINE CLINICAL INFORMATION: M54.2 - Cervicalgia COMPARISON: None available. TECHNIQUE: 5 views FINDINGS: The cervical spine is visualized from C1-C6 level. No evidence of acute fracture or spondylolisthesis. Vertebral body heights are maintained. Mild C5-6 disc space narrowing. C4 small endplate osteophytes. Mild facet degeneration. No prevertebral soft tissue swelling. Predens space is maintained. Lung apices are clear. No abnormal soft tissue calcification. XR/XR cervical spine 3V IMPRESSION: No acute osseous findings. Cervical spondylosis. Electronically signed by: Ben Portillo MD 04/10/2025 11:15 AM EDT
== END 2025-04-10 09:49 | disposition home or self-care (01) ==
LOC: HO.XRAY 09:48
PROVIDERS: PCP Internal Medicine; Visit Provider Internal Medicine
DX: M25.511 Pain in right shoulder (principal); G43.909 Migraine, unspecified, not intractable, without status migrainosus; E05.90 Thyrotoxicosis, unspecified without thyrotoxic crisis or storm; G43.829 Menstrual migraine, not intractable, without status migrainosus; M54.2 Cervicalgia; E55.9 Vitamin D deficiency, unspecified; Z23 Encounter for immunization
CPT/HCPCS: 72040; 73030; 90471; 90656

== ENCOUNTER 2025-04-10 09:48 | Outpatient (AMB) | payer OTHER, SELFPAY ==
[2025-04-10 09:50] VITALS: BP 110/82; PULSE 83; O2SAT 96; BMI 27.2
--- NOTE | 2025-04-10 09:50 | A.OFFPC_ITS ---
Vital Signs 04/10/25 09:50 Height 5 ft 7 in Weight 173 lb 8 oz BMI 27.2 BP 110/82 Blood Pressure Location Lt brachial Position Sitting Pulse 83 Pulse Source Pulse Oximeter Pulse Oximetry (%) 96 Oxygen Delivery Method Room Air Intake Visit Reasons: migraines Justice Of [employer] Peace Required: No Accompanied by: Self / Same As Patient Allergies No Known Allergies Allergy (Verified 04/10/25 10:02) Medication List - Last Reconciled 04/10/25 by Blanca Chauhan MD amitriptyline 10 mg PO BEDTIME arm brace (Wrist Support One Size) As directed magnesium glycinate 400 mg (4 x 100 mg magnesium) PO .qhs methimazole 2.5 mg (1/2 x 5 mg) PO DAILY sumatriptan succinate (Imitrex) take 1 tab at onset of headache; if no relief may repeat 1 tab after at least 2 hrs; max = 4 tabs/24 hr PO Ventolin HFA 90 mcg/actuation (albuterol sulfate) 2 puffs inhalation Q6H PRN 30 days NS Tobacco use date assessed: 04/10/25 Dental Screening Dental Screen Date: 04/10/25 Did you have a dental visit in the last 12 months?: Yes Did you have a dental problem in the last 6 months where you did not have access to dental care?: No Was dental information given to patient?: Patient has dentist HPI HPI Comments History of Present Illness Details The patient is a 49-year-old female presenting for a follow-up visit for review of laboratory results and medication management. She has no known drug allergies. The patient has a history of migraines, for which she was prescribed amitriptyline, but she reports not using it for some time as she has not experienced migraines. She has sumatriptan for as-needed use. She also has an albuterol inhaler for as-needed use, which is and requires a refill. She reports taking magnesium. The patient denies any cardiovascular problems, and her [place] risk score is low. Recent thyroid laboratory results were normal. She also mentioned having a cyst associated with pain. Has hyperthyroidism and her TSH is normal with methimazole and this is follow by Endocrinology. Also has low vitamin-D that will be supplemented. She complains of right shoulder pain and neck pain that started about 3 weeks ago while she was cleaning her closet. Has limited range of motion in terms of right shoulder elevation and abduction. [facility] Medical History (Updated 04/10/25 @ 11:59 by Blanca Chauhan MD) Neck pain Physical exam Cervical cancer screening Epigastric pain Muscle spasm Back pain Numbness and tingling Physical exam Diverticulitis Family history of hypertension Well woman exam with routine gynecological exam Hospital discharge follow-up Vertigo Transient global amnesia Vertigo Chest pain Dystonia Hyperthyroidism Skin lesion Mild asthma Migraines Surgical History History of esophagogastroduodenoscopy (EGD) Family History Father Diabetes Hypertension H/O heart surgery Mother Hypertension Maren-Danlos syndrome Maternal Grandfather Cancer Maternal Aunt Cancer Breast cancer Sister Maren-Danlos syndrome Heart disease Paternal Uncle FH: prostate cancer Social History Housing: Apartment Alcohol intake: current Alcohol intake frequency: holidays/special occasions only Alcohol type: wine Patient Tobacco Use Status: Never used Tobacco e-Cigarette/Vaping Use: Never Used Second Hand Smoke Exposure: No service: No Current occupational status: employed Current occupational exposures/hazards: No Cognitive needs: No Hearing needs: No Vision needs: Yes Questionnaire Thrive Questionnaire Date Thrive assessed: 09/27/24 I am a: Patient What is your living situation today?: I have a steady place to live Within the past 12 months, did the food you bought not last and you didn't have the money to get more?: Never true Within the past 12 months, did you worry whether your food would run out before you got money to buy more?: Never true Do you have trouble paying for medicines?: No Do you have trouble getting transportation to medical appointments?: No Do you have trouble paying your heating and electricity bill?: No Do you have trouble taking care of your child, family member or friend?: No Do you have trouble with day-to-day activities such as bathing, preparing meals, shopping, managing finances, etc.?: No Are you currently unemployed and looking for a job?: No Are you interested in more education?: No Please select the resources that you would like help with: None Currently or been in a relationship where the following occur: No concerns reported THRIVE Score: 0 AUDIT C Alcohol Use Questionnaire (AUDIT-C) 1. How often do you have a drink containing alcohol?: Monthly or less 2. How many drinks containing alcohol do you have on a typical day when you are drinking?: 1 or 2 3. How often do you have six or more drinks on one occasion?: Never Total Score: 1 Score Reviewed/Action Taken: No HOSEA-7 AMB Questionnaire HOSEA-7 Date HOSEA - 7 assessed: 09/28/24 Source: Developed by Drs. Jaime Dang, Anamaria Tamayo, Omari Garg and colleagues, with an educational christiano from [employer]. Review of Systems Const All systems reviewed & are unremarkable except as noted in HPI and below Card Denies chest pain at rest, Denies chest pain with activity, Denies edema, Denies irregular heart rhythm, Denies claudication, Denies dyspnea, Denies dyspnea on exertion, Denies orthopnea, Denies paroxysmal nocturnal dyspnea and Denies slow heart rate Resp Denies cough, Denies dyspnea and Denies dyspnea on exertion Physical exam (Primary Care) Vital Signs: Last Vital Signs Pulse 83 04/10/25 09:50 BP 110/82 04/10/25 09:50 Pulse Ox 96 04/10/25 09:50 Oxygen Delivery Method Room Air 04/10/25 09:50 BMI result Body Mass Index 27.2 Tobacco/Smoking Status: Tobacco use Status Tobacco use date assessed 04/10/25 04/10/25 09:56 Patient Tobacco Use Status Never used Tobacco 04/10/25 09:56 Tobacco use type 12/10/21 17:59 e-Cigarette/Vaping Use Never Used 04/10/25 09:56 Thrive Assessment: Date of Thrive Assessment Date Thrive assessed 09/27/24 04/10/25 09:56 Currently or been in a relationship where the following occur: No concerns reported Resp Effort & Inspection: normal respiratory effort Auscultation: clear to auscultation bilaterally Cardio Jugular venous distension: no JVD Rate: regular rate Rhythm: regular rhythm Heart sounds: S1 normal heart sound present and S2 normal heart sound present Extrem General: Yes full ROM Office Procedures Flu Questionnaire Does the patient have a severe egg allergy?: No Does the patient have severe life threatening allergies?: No Does the patient have a fever or illness today?: No Has the patient ever had Guillain-[place] Syndrome?: No Has the patient ever had any past reaction to a flu shot?: No Immunizations Fluarix [id number] (PF) 45 mcg (15 mcg x 3)/0.5 mL IM syringe Performing Provider: Blanca Chauhan MD [facility] Administered by: ANUEL Fitzgerald on 04/10/25 10:21 Dose Route Admin Location Dispensed Lot Number Expiration Date NDC Catalog Librarian 0.5 mL IM Left Deltoid 0.5 mL [id number] 12/12/25 [id number] [employer] VIS Given Date VIS Provided VIS Publication Date 04/10/25 Single Vaccine 24 Eligibility Eligibility Date Funding Source Not [facility] Eligible 04/10/25 Private Coding Level of Care Code Est Pt Level 4 (41620) Complex EM visit Add On G2211 Diagnoses Menstrual migraine without status migrainosus, not intractable G43.829 Migraine type: menstrual Status migrainosus presence: without status migrainosus Intractability: not intractable Neck pain M54.2 Right shoulder pain M25.511 Hyperthyroidism E05.90 Hypovitaminosis D E55.9 Time Spent (min) 21 Assessment & Plan Assessment & Plan (1) Migraines: Code(s): G43.909 - Migraine, unspecified, not intractable, without status migrainosus Category: Medical Qualifiers: Migraine type: menstrual Status migrainosus presence: without status migrainosus Intractability: not intractable Qualified Code(s): G43.829 - Menstrual migraine, not intractable, without status migrainosus (2) Neck pain: Code(s): M54.2 - Cervicalgia Category: Medical (3) Right shoulder pain: Code(s): M25.511 - Pain in right shoulder Category: Medical (4) Hyperthyroidism: Code(s): E05.90 - Thyrotoxicosis, unspecified without thyrotoxic crisis or storm Category: Medical (5) Hypovitaminosis D: Code(s): E55.9 - Vitamin D deficiency, unspecified Category: Medical Plan Plan 1. Migraine, unspecified, not intractable, without status migrainosus G43.909 The patient's migraines are currently controlled, as she has not experienced any recently and is not using her prophylactic amitriptyline. She will continue to have sumatriptan available for as-needed use. 2. Thyrotoxicosis, unspecified without thyrotoxic crisis or storm E05.90 Continue methimazole. Follow up with Endocrinology. 3. Pain in right shoulder M25.511 XR ordered. 4. Cervicalgia M54.2 XR ordered. 5. Vitamin D deficiency, unspecified E55.9 Continue vitamin D supplements. Orders: Orders Influenza [id number] Immunization Today Z23 - Encounter for immunization XR shoulder RT min 2V Today M25.511 - Pain in right shoulder Medications: New cholecalciferol (vitamin D3) 50 mcg PO DAILY 90 caps 1RF 90 days Refilled Ventolin HFA 90 mcg/actuation (albuterol sulfate) 2 puffs inhalation Q6H PRN 8 grams 2RF shortness of breath or wheezing 30 days NS J45.909 - Unspecified asthma, uncomplicated Discontinued amitriptyline Discontinued Reason: Patient Completed Course 10 mg PO BEDTIME 90 tabs 6RF
--- OUTSIDE RECORDS SUMMARY | 2025-04-10 11:20 | XMS_ITS | Encounter Summary ---
Author Organization [facility] Address [address] [place] [address] Phone Care Team Providers Care Cobol Application Developer Name Role Phone Pcp, Unknown Primary Care Provider Unavailabl e Encounter Details Date Type Department Care Team (Late st Contact Info) Description 03/04/2024 Ancillary Orders [facility] Rheumatology [address] [place] [address] Rebeka Schwartz MD [address], [address] [place] [address] [email or web address] Maren-Danlos syndrome type IV (Primary Dx); [...] (generalized) documented in this encounter Care Teams Cobol Application Developer Relationship Specialty Start Date End Date Pcp, Unknown PCP - General 12/23/21 documented as of this encounter Additional Source Comments The information contained in this document represents components of the legal health record. It is not the complete legal health record.[facility]
--- OUTSIDE RECORDS SUMMARY | 2025-04-10 11:20 | XMS_ITS | Clinical Summary ---
Author Organization [facility] Address [address] [place] [id number] Phone Care Team Providers Care Target Trimmer Name Role Phone Pcp, Unknown Primary Care Provider Unavailabl e Allergies No known active allergies Medications methIMAzole (TAPAZOLE) 5 MG tablet Take 5 mg by mouth daily. 06/27/2022 Active albuterol 90 mcg/actuation inhaler Inhale 2 puffs into the lungs every 4 (four) hours as needed. Active MAGNESIUM ORAL Take 300 mg by mouth. Active amitriptyline (ELAVIL) 10 MG tablet Take 10 mg by mouth nightly at bedtime. Active SUMAtriptan (IMITREX) 50 MG tablet Take 50 mg by mouth once as needed for migraine. Can repeat dose in 2 hours if needed. Do not exceed 2 doses in a 24 hour period. Max dose 200mg/ day Active famotidine (PEPCID) 40 MG tablet Take 40 mg by mouth 2 (two) times a day. 12/01/2023 Active Active Problems Problem Noted Date Diagnosed Date Neck arthritis 02/10/2024 Assessment & Plan (02/10/2024 12:48 PM EDT): Proper neck support during the day and for nighttime. .Use warm pack versus warm shower prior to gentle, regular exercises-examples of this and detailed instructions printed for home use today. Chronic midline low back pain without sciatica 0 02/10/2024 Assessment & Plan (02/10/2024 12:49 PM EDT): Avoid recurrent bending, stooping, heavy lifting, falls and injuries. Use warm pack versus warm shower prior to gentle, regular exercises-examples of exercises with pictures and detailed instructions provided already on previous visit. She may benefit from using topical gels/creams such as Arnica, Biofreeze, Aspercreme versus medicated patches such as Salonpas or IcyHot patch Chronic pain of both knees 02/10/2024 Assessment & Plan (02/10/2024 12:52 PM EDT): Continue joint protection, energy conservation. Gentle, regular exercise routine. Avoid falls, injuries, overuse. Keep body weight in ideal range for her height. She may benefit from topical cream such as Arnica, Biofreeze, Aspercreme versus medicated patches such as salonpas, icy hot patch 2-3 times daily and if necessary at bedtime x 3 weeks. X-rays requested to assess extent of involvement and formal PT to optimize benefits Muscle weakness 02/10/2024 Assessment & Plan (02/10/2024 12:54 PM EDT): Gentle, regular exercises preceded by warm pack or warm shower as tolerated gradually building up strength and endurance-examples of quadriceps strengthening exercises with pictures and detailed instructions printed for home use today and formal PT referral provided to optimize it. Pain of right hip 04/06/2023 Assessment & Plan (04/07/2023 11:26 PM EDT): Due to underlying vascular Maren-Danlos syndrome she is at an increased risk for tissue laxity therefore formal PT requested to guide her regarding best strategies on preventing tissue damage and injuries Chronic pain of right knee 04/06/2023 Assessment & Plan (04/07/2023 11:24 PM EDT): Joint protection, energy conservation. Gentle, regular exercise routine. Avoid falls, injuries, overuse. Keep body weight in ideal range for her height. She may benefit from topical cream such as Arnica, Biofreeze, Aspercreme versus medicated patches such as salonpas, icy hot patch 2-3 times daily and if necessary at bedtime x 3 weeks. 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 I have reviewed that with Beti today. In general she understands that there is no cure for her disease but need for assessing organ system involvement and periodic monitoring. She understand that she may be at increased risk for bowel rupture, organ rupture, or arterial rupture, therefore she is reminded to seek medical attention for sudden, unexplained pain and to minimize surgical procedures. If surgery or procedures such as colonoscopy should be required, it is important that the treating provider be aware of her diagnosis of vEDS and associated tissue fragility. Blood pressure monitoring recommended on a regular basis to allow for early treatment to minimize vascular stress and injury from hypertension. Joint protection, energy conservation. Gentle, regular exercise routine to her tolerance though gradually building strength and endurance. Avoid falls, injuries, overuse and sick contacts. She may benefit from warm pool exercise on a regular basis versus land exercises preceded by the warm pack or warm shower-I provided her with examples of exercises with pictures to strengthen her quadriceps and core muscle groups-see details in patient instruction section of [employer]. She may achieve additional benefit from using topical cream versus gel such as Arnica, Biofreeze, Voltaren, blue emu etc. versus medicated patches such as Salonpas or IcyHot patch 2-3 times daily and if needed at bedtime. 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 I have reviewed that with Beti today. In general she understands that there is no cure for her disease but need for assessing organ system involvement and periodic monitoring. She understand that she may be at increased risk for bowel rupture, organ rupture, or arterial rupture, therefore she is reminded to seek medical attention for sudden, unexplained pain and to minimize surgical procedures. If surgery or procedures such as colonoscopy should be required, it is important that the treating provider be aware of her diagnosis of vEDS and associated tissue fragility. Blood pressure monitoring recommended on a regular basis to allow for early treatment to minimize vascular stress and injury from hypertension. Joint protection, energy conservation. Gentle, regular exercise routine to her tolerance though gradually building strength and endurance. Avoid falls, injuries, overuse and sick contacts. She may benefit from warm pool exercise on a regular basis versus land exercises preceded by the warm pack or warm shower-I provided her with examples of exercises with pictures to strengthen her quadriceps and core muscle groups-see details in patient instruction section of [employer]. She may achieve additional benefit from using topical cream versus gel such as Arnica, Biofreeze, Voltaren, blue emu etc. versus medicated patches such as Salonpas or IcyHot patch 2-3 times daily and if needed at bedtime. Assessment & Plan (10/03/2022 11:15 PM EDT): Per [place] carding machine feeder [place] [facility] [place] of that evaluation for details. Depending on review of information from that appointment may offer either return to the carding machine feeder whom she liked and found helpful versus consider second opinion medical genetics consultation by Dr. Espinoza Hackett at [facility] on [address], [address] [place] [address]. In general she understands that there is no cure for her disease but need for assessing organ system involvement and periodic monitoring. Joint protection, energy conservation. Gentle, regular exercise routine to her tolerance though gradually building strength and endurance. Avoid falls, injuries, overuse and sick contacts. She may benefit from warm pool exercise on a regular basis versus land exercises preceded by the warm pack or warm shower-I provided her with examples of exercises with pictures to strengthen her quadriceps and core muscle groups-see details in patient instruction section of [employer]. She may achieve additional benefit from using topical cream versus gel such as Arnica, Biofreeze, Voltaren, blue emu etc. versus medicated patches such as Salonpas or IcyHot patch to-3 times daily and if needed at bedtime. NSAID long-term use 10/03/2022 Assessment & Plan (10/03/2022 11:10 PM EDT): Take the lowest dose, with least frequency, for shortest time. Remember to take it always with food. Favor topical over oral preparations. Hyperthyroidism 10/03/2022 Assessment & Plan (10/03/2022 11:06 PM EDT): Continue close follow-up with treating prefinish operator and PCP. Muscle cramps 10/03/2022 Assessment & Plan (10/03/2022 11:08 PM EDT): Offered magnesium supplementation by neurologist-has not started yet. Keep well-hydrated: 6-8 glasses (8 ounces) each of fluids daily. Well-balanced nutritionally diet-rich in vitamins, electrolytes, micro and ultra elements. Gentle, regular stretching & massage Easy bruising 10/03/2022 Assessment & Plan (04/07/2023 11:24 PM EDT): Chronic, related to her underlying vascular Maren-Danlos syndrome (EDS) subtype. Avoid falls, injuries, cuts. Provide sufficient amount of vitamin C daily-5 servings of vitamin C rich food products versus supplementation. Assessment & Plan (10/03/2022 11:09 PM EDT): Chronic, related to her underlying vascular Maren-Danlos syndrome (EDS) subtype. Avoid falls, injuries, cuts. Provide sufficient amount of vitamin C daily-5 servings of vitamin C rich food products versus supplementation. Resolved Problems Problem Noted Date Diagnosed Date Resolved Date NSAID long-term use 10/03/2022 10/04/19 23 Family History Medical History Relation Comments Diabetes Father Hypertension Father Cancer Maternal Aunt Maren-Danlos syndrome Mother Hypertension Mother Maren-Danlos syndrome Sister Heart disease Sister Relation Status Comments Father Maternal Aunt Mother Sister Social History Tobacco Use Types Packs/Day Years Used Date Smoking Tobacco: Never Smokeless Tobacco: Never Tobacco Cessation:Counseling Given: Not Answered Alcohol Use Standard Drinks/Week Comments Never 0 [...] on file Sexual Orientation Not on file Last Filed Vital Signs Vital Sign Reading Time Taken Comments Blood Pressure 122/80 02/10/2024 11:15 AM EDT Pulse 64 02/10/2024 11:15 AM EDT Temperature - - Respiratory Rate 16 10/03/2022 12:43 PM EDT Oxygen Saturation 99% 02/10/2024 11:15 AM EDT Inhaled Oxygen Concentration - - Weight 83.5 kg (184 lb) 02/10/2024 11:15 AM EDT Height 170.2 cm (5' 7 ) 02/10/2024 11:15 AM EDT Body Mass Index 28.82 02/10/2024 11:15 AM EDT Plan of Treatment Health Maintenance Due Date Last Done Comments Adult Td,Tdap Booster 1974 LIPID PANEL 1974 DEPRESSION SCREENING 1986 HEPATITIS C SCREENING 1992 HIV ONE-TIME SCREENING (18-65 YEARS) 1992 PAP SMEAR 1995 SCREENING FOR DIABETES 2009 MAMMOGRAM 2014 COLOGUARD 2019 COLONOSCOPY 2019 COLORECTAL CANCER SCREENING 2019 FIT TEST 2019 FOBT 2019 SIGMOIDOSCOPY 2019 VIRTUAL COLONOSCOPY 2019 PNEUMOCOCCAL VACCINES (50+ years) (1 of 1 - PCV) 2024 ZOSTER VACCINES (1 of 2) 2024 INFLUENZA VACCINE (#1) 2025 3, 05/01/2022, 04/23/2021, Additional history exists COVID-19 VACCINE (2024- season) 2025 05/08/2021, 08/01/2020, 07/06/2020 RSV VACCINE (1 - 1-dose 75+ series) 2049 SMOKING STATUS SCREENING (Once After 26 Yrs) Completed 02/10/2024 HEPATITIS A VACCINES Aged Out No long er eligible based on patient's age to complete this topic HIB VACCINES Aged Out No longer eligi ble based on patient's age to complete this topic MENINGOCOCCAL VACCINES (ACWY) Aged Out No longer eligible based on patient's age to complete this topic MENINGOCOCCAL VACCINES (B) Aged Out N o longer eligible based on patient's age to complete this topic Medical Devices Not on file Insurance GENERIC COMMERCIAL MD JOY [id number] GENERIC COMMERCIAL GENERIC COMMERCIAL GENERIC COMMERCIAL GENERIC COMMERCIAL GENERIC COMMERCIAL MD JOY [id number] Care Teams Target Trimmer Relationship Specialty Start Date End Date Pcp, Unknown PCP - General 12/23/21 Additional Source Comments The information contained in this document represents components of the legal health record. It is not the complete legal health record.[facility]
== END 2025-04-10 10:23 | disposition home or self-care (01) ==
LOC: HO.HMCH 09:49
PROVIDERS: PCP Internal Medicine; Visit Provider Internal Medicine
DX: G43.829 Menstrual migraine, not intractable, without status migrainosus (principal); M54.2 Cervicalgia; M25.511 Pain in right shoulder; E05.90 Thyrotoxicosis, unspecified without thyrotoxic crisis or storm; E55.9 Vitamin D deficiency, unspecified; Z23 Encounter for immunization

== ENCOUNTER → 2025-04-10 10:32 | Outpatient (BNV) | payer OTHER, SELFPAY | PROVIDERS: PCP Internal Medicine; Visit Provider Radiology Diagnostic Ultrasound | DX: M47.812 Spondylosis without myelopathy or radiculopathy, cervical region (principal); M19.011 Primary osteoarthritis, right shoulder | CPT/HCPCS: 72040; 73030 ==

== ENCOUNTER 2025-05-04 09:59 | Outpatient (AMB) | payer OTHER, SELFPAY ==
--- NOTE | 2025-05-04 10:06 | A.OFFVIS_ITS ---
Vital Signs 05/04/25 10:07 Height 5 ft 7 in Weight 173 lb 5.917 oz BMI 27.2 BP 114/76 Blood Pressure Location Rt brachial Position Sitting Pulse 67 Pulse Source Pulse Oximeter Pulse Oximetry (%) 100 Oxygen Delivery Method Room Air Intake Visit Reasons: Hyperthyroidism- pt Intake Note: Patient presents here today for Hyperparathyroidism follow-up after completion o f work-up. Last seen by Dr Vianey MD: * Thyroid Workup Labs: Completed on 04/03/2025 Aviation Operations Specialist Required: No Accompanied by: Self / Same As Patient Allergies No Known Allergies Allergy (Verified 05/04/25 10:07) HPI Comments Details: 49-year-old female coming in today for follow up of hyperthyroidism. Last seen by Dr. Winters on 01/18/2025. This is my 1st time seeing this patient. HPI Was previously following with [facility] endocrinology,wants to transfer care over here, was seeing Dr. Eulogio Gomes last. first had hypothyroidism was on levothyroxine but had postivitive stimulating antibodies Was diagnosed with hyperthyroidism in 2020 was hospitalized with palpitations , blood work showed thyrotoxicosis. Started on methimazole initially on higher doses , titrated down to now methimazole 5 mg daily. On methimazole 5 mg daily for over a year. Patient currently denies heat or cold intolerance, diarrhea or constipation, hair loss, palpitation, anxiety, weight changes, mood changes, low energy, changes in appearance of eyes or vision changes, tremors, increased diaphoresis or dry skin. ? Patient does have some intermittent dysphagia. Patient denies any history of childhood neck radiation. Denies having ever used lithium, amiodarone or biotin supplements. Patient denies any family history of thyroid cancer or thyroid disease. 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 Interval history Continues on methimazole 2.5 mg since 01/18/25 She reports significant hair loss. Cold hands/feet even in warm placed. She reports periods been erratic. Denies heat or cold intolerance, diarrhea, palpitations, anxiety, weight changes, vision changes Denies tremors Physical exam: General: sitting comfortably in no acute distress Neck: supple, mildly prominent thyroid Cardiac: normal heart sounds Pulm: normal breath sounds B/L, no added breath sounds Abd: not distended, no tenderness Extremities: no edema, no signs of myxedema, no tremors Laboratory Tests 04/03/25 09:41 Sodium 139 Creatinine 0.76 Estimated GFR > 60 25-OH Vitamin D Total 15.8 L TSH 1.81 Free T4 1.08 Total T3 101 Laboratory Tests 11/01/18 09:15 TSH 3rd Generation 0.56 Laboratory Tests 11/28/24 11:31 TSH 1.52 Free T4 1.01 Total T3 86 Thyroid Stim Immunoglob <89 Thyroid Peroxidase Ab 118 H TSH Receptor Ab 1.33 labs [facility] seen on patient portal 07/01/24 tsh 0.89 tsi 1.53 free t4 1.51 total t3 117 2020 tsi 113 tshreceptor ab 85 05/16/22 us thyroid showed no discrete nodules, heterogenous glanf Physical exam PFSH Medical History Neck pain Physical exam Cervical cancer screening Epigastric pain Muscle spasm Back pain Numbness and tingling Physical exam Diverticulitis Family history of hypertension Well woman exam with routine gynecological exam Hospital discharge follow-up Vertigo Transient global amnesia Vertigo Chest pain Dystonia Hyperthyroidism Skin lesion Mild asthma Migraines Surgical History History of esophagogastroduodenoscopy (EGD) Family History Father Diabetes Hypertension H/O heart surgery Mother Hypertension Maren-Danlos syndrome Maternal Grandfather Cancer Maternal Aunt Cancer Breast cancer Sister Maren-Danlos syndrome Heart disease Paternal Uncle FH: prostate cancer Social History Housing: Apartment Alcohol intake: current Alcohol intake frequency: holidays/special occasions only Alcohol type: wine Patient Tobacco Use Status: Never used Tobacco e-Cigarette/Vaping Use: Never Used Second Hand Smoke Exposure: No service: No Current occupational status: employed Current occupational exposures/hazards: No Cognitive needs: No Hearing needs: No Vision needs: Yes Physical Exam Vital Signs: Oxygen Delivery Method Room Air 05/04/25 10:07 Assessment & Plan Assessment & Plan (1) Graves disease: Code(s): E05.00 - 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 Has a history of hyperthyroidism diagnosed in 2020 when she was hospitalized with severe symptoms and was found to be in thyrotoxicosis. Started on methimazole, which has been titrated down to 5 mg daily. Patient has been on this dose for some time. Currently denies any symptoms of hyperthyroidism. Discussed with patient that about 30% of the patients have remission after 12-18 months of treatment with methimazole. More recent data has shown longer periods of treatment resulting in better remission rates as well. At this time we will plan to continue treatment with methimazole and continue adjusting the dose as needed. In the long run if she does not have remission, we also briefly discussed definitive therapy options of radioactive iodine ablation and total thyroidectomy and the need for requiring long-term levothyroxine therapy after those procedures. No features of orbitopathy, no history of smoking. Continues on methimazole 5 mg 11/28/2024: Normal TSH 1.52, normal free T4 1.01, total T3 86, TSI antibodies undetectable, TSH receptor antibody with a normal range at 1.33, TPO antibodies elevated at 118. At this point she has been on methimazole for about 4 years, given negative TSI antibodies. and normal TSH receptor an hopefully there is less of a chance of relapse in her. I think is reasonable to stop Methimazole and Plan: -Stop methimazole to 2.5 mg daily -check TSH, free T4, total T3, in 3 months -Monitor for symptoms of hyperthyroidism (review symptoms with patient) -follow up in 3 months (2) Hypovitaminosis D: Code(s): E55.9 - Vitamin D deficiency, unspecified Category: Medical Plan: She reports taking vitamin D 2000 IU since Apr 10. Most recent levels 04/03/25 Recommend rechecking levels in 6 months to assess need for high dose. Plan I spent 30 minutes in reviewing the record, seeing the patient and documenting in the medical record. Orders: Orders Triiodothyronine T3 Total 3 Months E05.00 - 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 or storm, E55.9 - Vitamin D deficiency, unspecified TSH reflex Free T4 3 Months E05.00 - 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 or storm Free T4 (Free Thyroxine) 3 Months E05.00 - 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 or storm, E55.9 - Vitamin D deficiency, unspecified Coding Level of Care Code Est Pt Level 3 (53044) Diagnoses Graves disease E05.00 Hypovitaminosis D E55.9
[2025-05-04 10:07] VITALS: BP 114/76; PULSE 67; O2SAT 100; BMI 27.2
== END 2025-05-04 10:32 | disposition home or self-care (01) ==
LOC: HO.ENCR 10:00
PROVIDERS: PCP Internal Medicine; Visit Provider Student in an Organized Health Care Education/Training Program
DX: E05.00 Thyrotoxicosis with diffuse goiter without thyrotoxic crisis or storm (principal); E55.9 Vitamin D deficiency, unspecified
CPT/HCPCS: 99213